=== PATIENT | female | born 1960 | race Two or more races ===

== ENCOUNTER → 2020-08-25 12:27 | Outpatient (BNVA) | payer OTHER, SELFPAY | PROVIDERS: PCP Internal Medicine; Referring Provider Internal Medicine; Visit Provider Dietitian, Registered | DX: Z76.89 Persons encountering health services in other specified circumstances (principal) ==

== ENCOUNTER → 2020-10-06 11:53 | Outpatient (BNVA) | payer OTHER, SELFPAY | PROVIDERS: PCP Internal Medicine; Visit Provider Dietitian, Registered ==

== ENCOUNTER 2022-02-14 08:43 | Outpatient (REF) | payer OTHER, SELFPAY ==
--- NOTE | ~2022-02-14 | XR_ITS ---
EXAMINATION: XR LUMBOSACRAL SPINE CLINICAL INFORMATION: Pain COMPARISON: Previous lumbar spine MRI from 2007 TECHNIQUE: Three views of the lumbosacral spine. FINDINGS: There is mild curvature of the lumbar spine to the left. Bone alignment is otherwise normal. There is degenerative disc disease at L4-L5. There is lower lumbar spine facet arthritis. There is sacralization of the left L5 transverse process. There is evidence of atherosclerotic disease. XR/XR lumbar spine 2-3V IMPRESSION: Degenerative changes of the lower lumbar spine.
[2022-02-14 09:17] LABS: MANUAL DIFF FLAG NO
[2022-02-14 09:38] LABS: Basophils Absolute Auto 0.1 X10*3/uL (0.0-0.2); Basophils Percent Auto 0.8 % (0-2); Eosinophils Absolute Auto 0.3 X10*3/uL (0.0-0.4); Eosinophils Percent Auto 2.3 % (0-4); Hematocrit 42.9 % (37.0-47.0); Imm Gran Abs Auto 0.04 X10*3/uL (0.00-0.03); Imm Gran Pct Auto 0.3 % (0.0-0.4); Lymphocytes Absolute Auto 3.5 X10*3/uL (1.2-4.9); Lymphocytes Percent Auto 29.1 % (20-40); Mean Corpuscular HGB Conc 32.6 g/dl (31.0-35.0); Mean Corpuscular Hemoglobin 31.4 pg (27.0-33.0); Mean Corpuscular Volume 96.2 fL (80.0-98.0); Mean Platelet Volume 11.4 fL (9.4-12.3); Monocytes Absolute Auto 0.7 X10*3/uL (0.1-1.2); Monocytes Percent Auto 6.1 % (2-11); Neutrophils Absolute Auto 7.3 x10*3/uL (2.0-8.3); Neutrophils Percent Auto 61.4 % (45-73); Platelet Count 255 X10*3/uL (160-400); Red Blood Count 4.46 X10*6/uL (4.20-5.50); White Blood Count 11.9 X10*3/uL (4.8-10.8)
[2022-02-14 10:28] LABS: Erythrocyte Sedimentation Rate 14 MM/HR (0-20)
[2022-02-14 10:47] LABS: Appearance Urine CLEAR; Color Urine YELLOW; Glucose Urine UA 250 MG/DL (NEG); Leukocyte Esterase Urine NEG (NEG); Nitrite Urine NEG (NEG); Specific Gravity - Urine 1.025 (1.005-1.025); Urine Blood NEG (NEG); Urine Ketones NEG (NEG); Urine Protein NEG (NEG-TRACE)
[2022-02-14 10:52] LABS: Vitamin D 25-OH Total 31.9 ng/mL (>30)
[2022-02-14 10:54] LABS: Alanine Aminotransferase 28 U/L (0-31); Albumin Level 4.3 g/dL (3.5-5.0); Alkaline Phosphatase 158 U/L (39-117); Anion Gap 16 (12-20); Aspartate Amino Transferase 18 U/L (5-31); Bilirubin Total 0.5 mg/dL (0.0-1.0); Blood Urea Nitrogen 13 mg/dL (9-16); C Reactive Protein 0.33 mg/dL (< or = 0.50); Calcium 9.7 mg/dL (8.4-10.2); Carbon Dioxide 25 mmol/L (22-29); Chloride 103 mmol/L (96-108); Cholesterol 165 mg/dL; Estimated Glomerular Filt Rate > 60; Glucose Fasting 186 mg/dL (60-99); HDL Cholesterol 37 mg/dL; LDL Cholesterol Calculated 94 mg/dl; Potassium 4.6 mmol/L (3.3-5.1); Sodium 139 mmol/L (135-145); Total Protein 7.2 g/dL (6.5-8.0); Triglycerides 172 mg/dL
[2022-02-14 11:58] LABS: Creatinine Urine 193.77 mg/dL; Microalbum/Creatinine Ratio Ur 5.6 ug/mg cr
[2022-02-16 05:06] LABS: C Peptide 1.63 ng/mL (0.80-3.85)
== END 2022-02-14 08:44 | disposition home or self-care (01) ==
LOC: HO.XRAY 08:43
PROVIDERS: PCP Internal Medicine; Visit Provider Internal Medicine
DX: E78.00 Pure hypercholesterolemia, unspecified (principal); I10 Essential (primary) hypertension; E55.9 Vitamin D deficiency, unspecified; M54.50 Low back pain, unspecified; M79.605 Pain in left leg; E11.9 Type 2 diabetes mellitus without complications
CPT/HCPCS: 36415; 72100; 80053; 80061; 81003; 82043; 82306; 84443; 84681; 85025; 85652; 86140

== ENCOUNTER 2022-08-22 12:42 | Outpatient (REF) | payer OTHER, SELFPAY ==
[2022-08-22 13:27] LABS: Appearance Urine Clear; Color Urine Yellow; Glucose Urine UA 100 mg/dL (Negative); Leukocyte Esterase Urine Trace (Negative); Nitrite Urine Negative (Negative); PH 5.5 (5.0-9.0); Specific Gravity - Urine 1.015 (1.005-1.025); UMIC TRIGGER UACC YES; Urine Blood Negative (Negative); Urine Ketones Negative (Negative); Urine Protein Negative (Neg-Trace)
[2022-08-22 13:31] LABS: Bacteria Urine None Seen (None Seen); Hyaline Casts Urine 0-2 /LPF (0-2); RBC Urine 0-2 /HPF (0-2); WBC Urine 0-5 /HPF (0-5)
== END 2022-08-22 12:43 | disposition home or self-care (01) ==
LOC: HO.LAB 12:42
PROVIDERS: PCP Internal Medicine; Visit Provider Internal Medicine
DX: R30.0 Dysuria (principal); R10.9 Unspecified abdominal pain
CPT/HCPCS: 81001

== ENCOUNTER → 2022-10-10 10:42 | Outpatient (BNVA) | payer OTHER, SELFPAY | PROVIDERS: PCP Internal Medicine; Visit Provider Nurse Practitioner Family | DX: M54.16 Radiculopathy, lumbar region (principal); M47.816 Spondylosis without myelopathy or radiculopathy, lumbar region; M51.36 Other intervertebral disc degeneration, lumbar region; M47.812 Spondylosis without myelopathy or radiculopathy, cervical region; M53.3 Sacrococcygeal disorders, not elsewhere classified; M62.838 Other muscle spasm | CPT/HCPCS: 99202 ==

== ENCOUNTER 2022-10-28 13:39 | Outpatient (REF) | payer OTHER, SELFPAY ==
--- NOTE | ~2022-10-28 | MR_ITS ---
EXAMINATION: MR LUMBAR SPINE WITHOUT CONTRAST CLINICAL INFORMATION: Lower back pain COMPARISON: MRI lumbar spine 07/21/2007 TECHNIQUE: MRI of the lumbar spine was obtained using routine sequences without contrast. FINDINGS: There is transitional lumbosacral anatomy with partial sacralization of L5 which demonstrates a broad transverse process which articulates with the sacrum. The last well-formed disc space corresponds to L5-S1 and there are hypoplastic ribs at T12.. Trace retrolisthesis of L4 on L5. No suspicious marrow signal or focal osseous lesion. Endplate marrow edema at L4-L5. The vertebral body heights are maintained. Multilevel degenerative disc desiccation and height loss, worst and progressed at L4-L5. The conus medullaris terminates at the level of L1. The distal spinal cord is normal in appearance. The cauda equina nerve roots appear normal. No significant abnormalities of the paraspinal musculature.. Limited evaluation of the intra-abdominal structures without significant abnormalities. The abdominal aorta is of normal contour and caliber. SPINAL LEVELS: T12-L1: Shallow disc bulge. No significant spinal canal or neural foraminal narrowing L1-L2: Shallow disc bulge with superimposed small central protrusion with slight caudal migration. No significant spinal canal or neural foraminal narrowing L2-L3: Shallow broad-based disc bulge mildly flattens the thecal sac. No significant spinal canal or neural foraminal narrowing L3-L4: Broad-based disc bulge, mild facet arthropathy with small bilateral joint effusions. Progressive subarticular zone narrowing and mild bilateral neural foraminal narrowing. No significant central spinal canal stenosis L4-L5: Trace retrolisthesis. Disc bulge and endplate spurring. Mild facet arthropathy with small right joint fluid. Ligamentum flavum thickening. Similar left greater than right subarticular zone narrowing with mass effect on the traversing L5 nerve roots. Stable mild bilateral neural foraminal narrowing. L5-S1: Mild facet arthropathy and endplate spurring. No significant spinal canal or neural foraminal narrowing MR/MR lumbar spine wo con IMPRESSION: 1. 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 2. Multilevel lumbar spondylosis as described above, most notable and slightly progressed at L3-L4 and L4-L5. No significant central spinal canal stenosis 3. At L4-L5, there is progressive degenerative disc disease and endplate edema with stable trace retrolisthesis and subarticular zone narrowing with mass effect on the traversing left greater than right L5 nerve roots and mild bilateral neural foraminal narrowing. 4. At L3-L4, there is progressive subarticular zone narrowing and mild bilateral neural foraminal narrowing.
== END 2022-10-28 13:40 | disposition home or self-care (01) ==
LOC: HO.MRI 13:39
PROVIDERS: Visit Provider Nurse Practitioner Family
DX: M54.16 Radiculopathy, lumbar region (principal); M47.816 Spondylosis without myelopathy or radiculopathy, lumbar region; M51.36 Other intervertebral disc degeneration, lumbar region; M62.838 Other muscle spasm
CPT/HCPCS: 72148

== ENCOUNTER 2022-11-15 10:49 | Outpatient (REF) | payer OTHER, SELFPAY ==
[2022-11-15 11:14] LABS: MANUAL DIFF FLAG NO
[2022-11-15 12:09] LABS: Basophils Absolute Auto 0.1 X10*3/uL (0.0-0.2); Basophils Percent Auto 0.8 % (0-2); Eosinophils Absolute Auto 0.3 X10*3/uL (0.0-0.4); Eosinophils Percent Auto 2.4 % (0-4); Hematocrit 42.4 % (37.0-47.0); Hemoglobin 14.2 g/dl (12.0-16.0); Imm Gran Abs Auto 0.05 X10*3/uL (0.00-0.03); Imm Gran Pct Auto 0.4 % (0.0-0.4); Lymphocytes Absolute Auto 3.2 X10*3/uL (1.2-4.9); Lymphocytes Percent Auto 27.6 % (20-40); Mean Corpuscular HGB Conc 33.5 g/dl (31.0-35.0); Mean Corpuscular Hemoglobin 31.6 pg (27.0-33.0); Mean Corpuscular Volume 94.4 fL (80.0-98.0); Monocytes Absolute Auto 0.8 X10*3/uL (0.1-1.2); Monocytes Percent Auto 6.8 % (2-11); Neutrophils Absolute Auto 7.3 x10*3/uL (2.0-8.3); Platelet Count 351 X10*3/uL (160-400); Red Blood Count 4.49 X10*6/uL (4.20-5.50); Red Cell Distribution Width 12.7 % (11.0-16.0); White Blood Count 11.7 X10*3/uL (4.8-10.8)
[2022-11-15 12:13] LABS: Appearance Urine Clear; Color Urine Yellow; Glucose Urine UA 500 mg/dL (Negative); Leukocyte Esterase Urine Negative (Negative); Nitrite Urine Negative (Negative); Specific Gravity - Urine 1.025 (1.005-1.025); Urine Blood Negative (Negative); Urine Ketones Trace mg/dL (Negative); Urine Protein Trace mg/dL (Neg-Trace)
[2022-11-15 12:44] LABS: Estimated Average Glucose 301 mg/dL; Hemoglobin A1c % 12.1 %
[2022-11-15 12:49] LABS: Creatinine Urine 184.27 mg/dL; Microalbum/Creatinine Ratio Ur 11.3 ug/mg cr
[2022-11-15 13:13] LABS: Alanine Aminotransferase 39 U/L (0-31); Albumin Level 4.3 g/dL (3.5-5.0); Alkaline Phosphatase 200 U/L (39-117); Anion Gap 18 (12-20); Aspartate Amino Transferase 29 U/L (5-31); Bilirubin Total 0.4 mg/dL (0.0-1.0); Blood Urea Nitrogen 15 mg/dL (9-16); Calcium 10.1 mg/dL (8.4-10.2); Carbon Dioxide 22 mmol/L (22-29); Chloride 104 mmol/L (96-108); Cholesterol 173 mg/dL; Estimated Glomerular Filt Rate > 60; Glucose Fasting 224 mg/dL (60-99); HDL Cholesterol 46 mg/dL; LDL Cholesterol Calculated 101 mg/dl; Potassium 4.9 mmol/L (3.3-5.1); Sodium 139 mmol/L (135-145); Total Protein 6.8 g/dL (6.5-8.0); Triglycerides 133 mg/dL
[2022-11-15 13:14] LABS: TSH reflex Free T4 2.67 uIU/mL (0.32-4.0); Vitamin D 25-OH Total 27.9 ng/mL (>30)
== END 2022-11-15 10:50 | disposition home or self-care (01) ==
LOC: HO.LAB 10:49
PROVIDERS: PCP Internal Medicine; Visit Provider Internal Medicine
DX: E78.00 Pure hypercholesterolemia, unspecified (principal); E55.9 Vitamin D deficiency, unspecified; E11.9 Type 2 diabetes mellitus without complications; I10 Essential (primary) hypertension; M53.3 Sacrococcygeal disorders, not elsewhere classified
CPT/HCPCS: 36415; 80053; 80061; 81003; 82043; 82306; 83036; 84443; 85025; 99212

== ENCOUNTER 2022-11-20 12:34 | Outpatient (AMB) | payer OTHER, SELFPAY ==
[2022-11-20 12:55] VITALS: BP 118/72; PULSE 88; TEMP 36.4; O2SAT 97; BMI 28.1
--- NOTE | 2022-11-20 12:55 | A.OFFPC_ITS ---
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: No Accompanied by: Self / Same As Patient Allergies iodine [IODINE] Allergy (Unknown, Verified 05/15/23 13:29) ANAPHYLAXIS IVP DYE Allergy (Severe, Uncoded 12/20/22 07:59) anaphylaxis Medication List - Last Reconciled 11/20/22 by Kana Roman MD acetaminophen ER 1,300 mg (2 x 650 mg) PO Q12H PRN atorvastatin 40 mg PO DAILY cholecalciferol (vitamin D3) 25 mcg PO DAILY famotidine 40 mg PO DAILY fluoxetine 20 mg PO DAILY gabapentin 300 mg PO TID 30 days glipizide 10 mg PO DAILY lisinopril 2.5 mg PO DAILY metformin 500 mg PO BID methocarbamol 750 mg PO Q8H PRN omeprazole 20 mg PO DAILY sitagliptin phosphate 50 mg PO DAILY 90 days temazepam (Restoril) 30 mg PO BEDTIME PRN Tobacco use date assessed: 11/20/22 HPI DM, hyperlipidemia, HTN HPI Details Patient comes in today for her follow up visit States that she feels okay She denies any headaches or dizziness Denies any chest pains, no SOB No nausea/vomiting, no abdominal pain No change in bowel habits noted Had her follow up labs done a few days ago - to discuss her results [facility] Medical History Benign essential hypertension GERD (gastroesophageal reflux disease) Insomnia Major depression, recurrent Overweight (BMI 25.0-29.9) Pure hypercholesterolemia Smoker Type 2 diabetes mellitus with hyperglycemia Vitamin D deficiency Surgical History Hx of foot surgery Hx of colonoscopy History of carpal tunnel release of both wrists Family History Father Diabetes Hypertension Mother Diabetes Hypertension Social History Housing: Apartment Alcohol intake: never Patient Tobacco Use Status: Current everyday Tobacco user Cigarettes Per Day: 3 e-Cigarette/Vaping Use: Never Used Second Hand Smoke Exposure: Yes service: No Current occupational status: disabled Cognitive needs: No Hearing needs: No Vision needs: Yes Questionnaire PHQ-9 Over the last 2 weeks, how often have you been bothered by any of the following problems? 1. Little interest or pleasure in doing things: several days 2. Feeling down, depressed, or hopeless: several days 3. Trouble falling or staying asleep, or sleeping too much: not at all 4. Feeling tired or having little energy: not at all 5. Poor appetite or overeating: not at all 6. Feeling bad about yourself - or that you are a failure or have let yourself or your family down: not at all 7. Trouble concentrating on things, such as reading the newspaper or watching television: several days 8. Moving or speaking so slowly that other people could have noticed. Or the opposite - being so fidgety or restless that you have been moving around a lot more than usual: not at all 9. Thoughts that you would be better off or of hurting yourself in some way: not at all Total score: 3 Depression Screening Interpretation: Negative 31222 - PHQ-9 Billing: Yes Source: Developed by Drs. Agustin Ramos, Claribel Cortez, Paul Mello and colleagues, with an educational alyssa from [employer]. Thrive Questionnaire Date Thrive assessed: 11/20/22 I am a: Patient What is your living situation today?: I have a steady place to live Within the past 12 months, did the food you bought not last and you didn't have the money to get more?: Never true Within the past 12 months, did you worry whether your food would run out before you got money to buy more?: Never true Do you have trouble paying for medicines?: No Do you have trouble getting transportation to medical appointments?: No Do you have trouble paying your heating and electricity bill?: No Do you have trouble taking care of your child, family member or friend?: No Do you have trouble with day-to-day activities such as bathing, preparing meals, shopping, managing finances, etc.?: No Are you currently unemployed and looking for a job?: No Are you interested in more education?: No Currently or been in a relationship where the following occur: no concerns reported AUDIT C Alcohol Use Questionnaire (AUDIT-C) 1. How often do you have a drink containing alcohol?: Never 3. How often do you have six or more drinks on one occasion?: Never Total Score: 0 Score Reviewed/Action Taken: Yes CALEB-7 AMB Questionnaire CALEB-7 Date CALEB - 7 assessed: 11/20/22 Feeling nervous, anxious, or on edge: 1 = Several days Not being able to stop or control worryin = Several days Worrying too much about different things: 0 = Not at all Trouble relaxin = Not at all Being so restless that it is hard to sit still: 0 = Not at all Becoming easily annoyed or irritable: 0 = Not at all Feeling afraid as if something awful might happen: 0 = Not at all Total CALEB-7 score (0-4 normal; 5-9 mild; 10-14 moderate; 15-21 severe): 2 Source: Developed by Drs. Agustin Ramos, Claribel Cortez, Paul Mello and colleagues, with an educational alyssa from [employer]. Review of Systems Const Denies chills, Reports fatigue, Denies fever(s) and Denies headache(s) ENT Denies dysphagia, Denies dizziness, Denies otalgia, Denies headache(s), Denies sinus pain and Denies sore throat Card Denies chest pain, Denies palpitations and Denies dyspnea Resp Denies cough and Denies dyspnea GI Denies abdominal pain, Denies constipation, Denies dysphagia, Denies heartburn, Denies diarrhea and Denies nausea Details: (+) left flank pain Denies difficulty voiding, Denies nocturia and Denies dysuria Musc Reports back pain (over the lower back and more recently over the left flank) Skin/Breast Denies rash Neuro Denies dizziness and Denies headache(s) Endo Reports fatigue and Denies palpitations Physical exam (Primary Care) Vital Signs: Last Vital Signs Temp 97.5 F 11/20/22 12:55 Pulse 88 11/20/22 12:55 BP 118/72 11/20/22 12:55 Pulse Ox 97 11/20/22 12:55 Oxygen Delivery Method Room Air 11/20/22 12:55 BMI result Body Mass Index 28.1 Tobacco/Smoking Status: Tobacco use Status Tobacco use date assessed 11/20/22 11/20/22 12:57 Patient Tobacco Use Status Current everyday Tobacco 11/20/22 12:57 e-Cigarette/Vaping Use Never Used 11/20/22 12:57 PHQ-9: PHQ-9 Score PHQ-9: Total score 3 11/20/22 13:52 Depression Screening Interpretation: Negative Thrive Assessment: Date of Thrive Assessment Date Thrive assessed 11/20/22 11/20/22 12:57 Currently or been in a relationship where the following occur: no concerns reported Const General: no acute distress and alert HENMT Ears: TM's normal bilaterally and EAC's normal Throat: Yes posterior oropharynx normal and Yes tonsils normal (no TP congestion) Neck Neck: Yes no lymphadenopathy and Yes supple Resp Auscultation: clear to auscultation bilaterally, no rales and no wheezes Cardio Rate: regular rate Rhythm: regular rhythm Heart sounds: no murmurs GI Palpation (GI): Soft to palpation and nontender Auscultation: normal bowel sounds General: Yes CVA tenderness (left) Back/Spine/Pelvis Back: CVA tenderness (left) Thoracic/Lumbar Spine: lumbar spinal tenderness Skin Rashes: no rashes Extrem General: Yes no clubbing, cyanosis or edema Results Reviewed Results Reviewed: Laboratory Tests 11/15/22 11/15/22 11/15/22 11:13 11:13 11:13 WBC 11.7 H Hgb 14.2 Hct 42.4 Plt Count 351 D Sodium 139 Potassium 4.9 Creatinine 0.83 Estimated GFR > 60 Fasting Glucose 224 H Hemoglobin A1c % 12.1 Calcium 10.1 AST 29 ALT 39 H Triglycerides 133 Cholesterol 173 LDL Cholesterol, Calc 101 HDL Cholesterol 46 25-OH Vitamin D Total 27.9 TSH 2.67 Ur Specific [place] Urine Protein Urine Glucose (UA) Urine Blood Microalb/Creat Ratio 11/15/22 11/15/22 11:36 11:36 WBC Hgb Hct Plt Count Sodium Potassium Creatinine Estimated GFR Fasting Glucose Hemoglobin A1c % Calcium AST ALT Triglycerides Cholesterol LDL Cholesterol, Calc HDL Cholesterol 25-OH Vitamin D Total TSH Ur Specific [place] 1.025 Urine Protein Trace Urine Glucose (UA) 500 H Urine Blood Negative Microalb/Creat Ratio 11.3 Assessment and Plan Assessment & Plan (1) Type 2 diabetes mellitus with hyperglycemia: Code(s): E11.65 - Type 2 diabetes mellitus with hyperglycemia Qualifiers: Diabetes mellitus moth exterminator insulin use: without moth exterminator use Qualified Code(s): E11.65 - Type 2 diabetes mellitus with hyperglycemia Plan: Is still poorly-controlled Her HgbA1c appears to have gotten a lot worse since her last visit as it has gone up to 12.1% on her recent labs done a few days ago (in-office HgbA1c was at 8.7% a few months ago) - goal is <7.0% Reinforced diabetic diet Will increase her Metformin to 1000 mg BID Will STOP Januvia 50 mg QD and start her on Trulicity 0.75 mg SQ once a week Continue Glipizide 10 mg QD for now Was previously referred to endocrinology for further evaluation and management TWICE but she states that she has never been contacted to scheduled an appointment; advised that she had an appointment back in February 2022 with a physician allergist immunologist and in March 2022 with endocrinology that she did not keep Will refer patient AGAIN to endocrinology for the 3rd time for further evaluation and management of her diabetes (2) Pure hypercholesterolemia: Code(s): E78.00 - Pure hypercholesterolemia, unspecified Plan: Results of her labs done a few days ago reviewed and discussed with patient Reinforced low cholesterol deit Continue Atorvastatin 40 mg QD Will recheck her fasting lipids and labs in 3 months for follow-up (3) Benign essential hypertension: Code(s): I10 - Essential (primary) hypertension Plan: Reinforced low sodium diet - goal is systolic BP of 120 mm or less Continue Lisinopril 2.5 mg QD (4) GERD (gastroesophageal reflux disease): Code(s): K21.9 - Gastro-esophageal reflux disease without esophagitis Qualifiers: Esophagitis presence: without esophagitis Qualified Code(s): K21.9 - Gastro-esophageal reflux disease without esophagitis Plan: Dietary restrictions reinforced Continue Omeprazole 20 mg QD and Famotidine 40 mg QD PRN (5) Low back pain radiating to left lower extremity: Code(s): M54.50 - Low back pain, unspecified; M79.605 - Pain in left leg Plan: Continue Gabapentin 300 mg TID Reinforced activity and weight-lifting restrictions Lumbar spine x-rays done a few months ago revealed (+) degenerative changes in the lumbar spine Follow up with pain management as scheduled (6) Vitamin D deficiency: Code(s): E55.9 - Vitamin D deficiency, unspecified Plan: Will increase her Vitamin D to 2000 units QD (7) Insomnia: Code(s): G47.00 - Insomnia, unspecified Qualifiers: Insomnia type: unspecified Qualified Code(s): G47.00 - Insomnia, unspecified Plan: Sleep hygiene reinforced Continue Temazepam 30 mg Q HS PRN (8) Major depression, recurrent: Code(s): F33.9 - Major depressive disorder, recurrent, unspecified Qualifiers: Active/Remission status: currently active Major depression episode severity: unspecified Qualified Code(s): F33.9 - Major depressive disorder, recurrent, unspecified Plan: Continue Fluoxetine 20 mg QD Follow up with psychiatry as scheduled (9) Smoker: Code(s): F17.200 - Nicotine dependence, unspecified, uncomplicated Plan: Counseled again on smoking cessation Will start on Bupropion XL 150 mg QD to help her quit smoking (10) Overweight (BMI 25.0-29.9): Code(s): E66.3 - Overweight Plan: Reinforced diet/exercise as tolerated/lose weight Plan Follow up in 3 months Orders: Orders Comprehensive [place]. Panel Fast 3 Months E78.00 - Pure hypercholesterolemia, unspecified Microalbumin, Random (w Creat) 3 Months E11.9 - Type 2 diabetes mellitus without complications XR chest 2V 17/23 R05.9 - Cough, unspecified, R07.89 - Other chest pain Complete Blood Count Auto Diff 3 Months I10 - Essential (primary) hypertension Lipid Panel 3 Months E78.00 - Pure hypercholesterolemia, unspecified TSH reflex Free T4 3 Months E78.00 - Pure hypercholesterolemia, unspecified UA CC w/rflx Micro + Cult 3 Months R30.0 - Dysuria Vitamin D 25-OH Total 3 Months E55.9 - Vitamin D deficiency, unspecified Hemoglobin A1c 3 Months E11.9 - Type 2 diabetes mellitus without complications Referrals Endocrinology Referral E11.65 - Type 2 diabetes mellitus with hyperglycemia Medications: New dulaglutide (Trulicity) 0.75 mg (0.5 mL) subcut QWEEK 2 mL 3RF 4 weeks E11.65 - Type 2 diabetes mellitus with hyperglycemia bupropion HCl 150 mg PO QAM 30 tabs 2RF 30 days cholecalciferol (vitamin D3) 50 mcg PO DAILY 90 caps 3RF 90 days E55.9 - Vitamin D deficiency, unspecified Changed From metformin 500 mg PO BID 60 tabs 3RF To metformin 1,000 mg PO BID 60 tabs 3RF 30 days Discontinued sitagliptin phosphate Discontinued Reason: Doctor's Order 50 mg PO DAILY 90 days 90 tabs 1RF Coding Level of Care Code Est Pt Level 4 (01017) Diagnoses Type 2 diabetes mellitus with hyperglycemia, without long-term current use of insulin E11.65 Diabetes mellitus moth exterminator insulin use: without long-term use Pure hypercholesterolemia E78.00 Benign essential hypertension I10 Gastroesophageal reflux disease without esophagitis K21.9 Esophagitis presence: without esophagitis Low back pain radiating to left lower extremity M54.50; M79.605 Vitamin D deficiency E55.9 Insomnia, unspecified type G47.00 Insomnia type: unspecified Episode of recurrent major depressive disorder, unspecified depression episode severity F33.9 Active/Remission status: currently active Major depression episode severity: unspecified Smoker F17.200 Overweight (BMI 25.0-29.9) E66.3
== END 2022-11-20 14:29 | disposition home or self-care (01) ==
LOC: HO.HMGH 12:34
PROVIDERS: PCP Internal Medicine; Visit Provider Internal Medicine
DX: E11.65 Type 2 diabetes mellitus with hyperglycemia (principal); F33.9 Major depressive disorder, recurrent, unspecified; E78.00 Pure hypercholesterolemia, unspecified; I10 Essential (primary) hypertension; K21.9 Gastro-esophageal reflux disease without esophagitis; M54.50 Low back pain, unspecified; M79.605 Pain in left leg; E55.9 Vitamin D deficiency, unspecified; G47.00 Insomnia, unspecified; F17.210 Nicotine dependence, cigarettes, uncomplicated; E66.3 Overweight
CPT/HCPCS: 99214

== ENCOUNTER 2022-11-22 10:59 | Outpatient (REF) | payer OTHER, SELFPAY ==
--- NOTE | ~2022-11-22 | XR_ITS ---
EXAMINATION: XR CHEST CLINICAL INFORMATION: Reason for Exam R05.9 - Cough, unspecified COMPARISON: Chest radiograph 10/13/2019 TECHNIQUE: 2 views of the chest FINDINGS: Again seen is a calcified right lung base granuloma measuring 8 mm. Stable biapical pleural-parenchymal scarring. Lungs appear otherwise clear. No pneumothorax or pleural effusion. Normal cardiomediastinal silhouette. XR/XR chest 2V IMPRESSION: 1. No acute pulmonary disease. 2. Again seen is a calcified right lung base granuloma measuring 8 mm.
== END 2022-11-22 11:00 | disposition home or self-care (01) ==
LOC: HO.XRAY 10:59
PROVIDERS: PCP Internal Medicine; Visit Provider Internal Medicine
DX: R07.89 Other chest pain (principal); R05.9 Cough, unspecified
CPT/HCPCS: 71046

== ENCOUNTER 2022-11-25 09:00 | Outpatient (RCR) | payer OTHER, SELFPAY ==
--- NOTE | 2022-11-06 13:09 | MHC.PT.EP ---
[facility] [place] Office [place] Office [place] Office [address] Ciara Caba [address] [phone] F: [phone] F: [phone] F: [phone] F: [phone] Physical Therapy Plan of Care Date of Evaluation: Date of Surgery: Diagnosis: SPONDYLOSIS CERVICAL AND LUMBAR REGIONS Assessment: 61 YO FEMALE REF TO PT FOR CERVICAL AND LUMBAR SPONDYLOSIS PROGRESSIVELY x 20 YRS- SHE WAS TREATED W PT AND INJECTIONS IN [place]. SHE RESIDES W HER GRANDSON IN A 4TH FLOOR APT, STAIRS ONLY. Pt HAS DECR POSTURAL AWARENESS, CERVICAL AND LUMBAR ROM LIMITATIONS, DECR HIP FLEXIBILITY, AND (+) SOFT TISSUE IRRIT IN RUBI CERV AND LUMBAR PS MM- SHE DENIES RADICUALR SXS AT THIS TIME. FUNCTIONALLY, Pt STATES SHE HAS DECR JESIKA TO STANDING, INCR AMBULATION, STAIR MGMT, AND HIGHER LEVEL ADLs. Pt WOULD BENEFIT FROM A TRIAL OF PT TO ADDRESS THE ABOVE FINDINGS, PAIN MANAGEMENT, AND DEV OF A HEP. Frequency and Duration: The patient will be seen 2 x WK x 5 WKS Short Term Goals: *Pt DEMON IMPROVED POSTURAL AWARENESS *DECR LB AND NECK PAIN TO 3-4/10 *IMPROVE HIP AND UPPER BACK STRENGTH *REDUCE UT TISSUE TENSION INCR ACTIVE SCAP RETRACTION Histology Tech Goals: *INCR FLEXIB IN PSOAS/ CALF MM TO IMPROVE EFFICIENCY OF GAIT ON LEVEL AND STAIRS *Pt INDEP W HEP AND SELF-CORRECT POSTURE *Pt IMPROVE FUNCTIONAL MOBILITY JESIKA -> PERFORM INCR ADLs Treatment Plan: Modalities to reduce pain, spasms and effusion. Manual therapy to restore motion and function. Therapeutic exercise to improve strength and flexibility. Neuromuscular re-education for posture and balance. Therapeutic activities to return to functional activities of daily living. Electronically signed by: SCOOTER RAYMONDPT Please sign and return to therapist. Thank you for your referral.
--- NOTE | 2023-01-21 14:24 | MHC.PT.DC ---
[place] Office [place] Office [place] Office [address] Ciara Caba [address] [facility] [phone] F: [phone] F: [phone] F: [phone] F: [phone] Physical Therapy Discharge Report Diagnosis: SPONDYLOSIS CERVICAL AND LUMBAR REGIONS Date of Surgery: Date of Evaluation: 11/06/22 Date of Discharge: 01/21/23 Treatments to Date: 6 Cancellations to Date: 0 No Shows to Date: 1 Discharge Status: Improved Function Independent with HEP Patient Elected to Stop Discharge Summary: The pt benefitted from PT to address postural and strength deficits, dev a hep, and pain management strategies. She has a HEP and at her last attended PT appt, she denied questions. A reassessment was not performed due a no-show for her last scheduled PT appt. Electronically signed by: Angle Zhou,pt Please sign and return to therapist. Thank you for your referral.
== END 2023-01-21 14:24 | disposition home or self-care (01) ==
LOC: HO.PT 09:00
PROVIDERS: PCP Internal Medicine; Visit Provider Nurse Practitioner Family
DX: M47.812 Spondylosis without myelopathy or radiculopathy, cervical region (principal); M47.816 Spondylosis without myelopathy or radiculopathy, lumbar region; M62.838 Other muscle spasm; M54.16 Radiculopathy, lumbar region; M53.3 Sacrococcygeal disorders, not elsewhere classified; M51.36 Other intervertebral disc degeneration, lumbar region
CPT/HCPCS: 97110; 97140; 97162; 97530

== ENCOUNTER → 2022-12-20 07:55 | Outpatient (BNVA) | payer OTHER, SELFPAY | PROVIDERS: PCP Internal Medicine; Visit Provider Internal Medicine Endocrinology, Diabetes & Metabolism | DX: E11.65 Type 2 diabetes mellitus with hyperglycemia (principal); E78.5 Hyperlipidemia, unspecified; Z83.3 Family history of diabetes mellitus | CPT/HCPCS: 82947; 99202 ==

== ENCOUNTER → 2023-02-14 09:01 | Outpatient (BNVA) | payer OTHER, SELFPAY | PROVIDERS: PCP Internal Medicine; Visit Provider Registered Nurse Diabetes Educator | DX: E11.8 Type 2 diabetes mellitus with unspecified complications (principal) | CPT/HCPCS: 99211 ==

== ENCOUNTER 2023-02-18 06:12 | Outpatient (REF) | payer OTHER, SELFPAY ==
--- NOTE | ~2023-02-18 | FL_ITS ---
EXAMINATION: XR FLUOROSCOPY WITH IMAGES CLINICAL INFORMATION: Spondylosis without myelopathy or radiculopathy, lumbar region. COMPARISON: None available. TECHNIQUE: Fluoroscopy Supervised By: Dr. Gwyn Bender. Fluoroscopy Time: 0.5 minutes. Cumulative Dose: 5.17 mGy. DAP: 1.40 Gycm2. Images: 6. FINDINGS: Images demonstrate needle placement and contrast injection adjacent to the bilateral lateral L3-L4 and L5 vertebrae FL/FL guidance in treatment room IMPRESSION: Fluoroscopy guidance for pain management procedure
== END 2023-02-18 06:13 | disposition home or self-care (01) ==
LOC: CF 06:12
PROVIDERS: Visit Provider Anesthesiology
DX: M47.816 Spondylosis without myelopathy or radiculopathy, lumbar region (principal); M54.16 Radiculopathy, lumbar region; M53.3 Sacrococcygeal disorders, not elsewhere classified; M62.838 Other muscle spasm; M51.36 Other intervertebral disc degeneration, lumbar region; E11.65 Type 2 diabetes mellitus with hyperglycemia
CPT/HCPCS: 64493; 64494; J3301

== ENCOUNTER → 2023-02-25 15:17 | Outpatient (BNVA) | payer OTHER, SELFPAY | PROVIDERS: PCP Internal Medicine; Visit Provider Nurse Practitioner Family | DX: M53.3 Sacrococcygeal disorders, not elsewhere classified (principal); M47.816 Spondylosis without myelopathy or radiculopathy, lumbar region; M62.838 Other muscle spasm; M51.36 Other intervertebral disc degeneration, lumbar region | CPT/HCPCS: 99212 ==

== ENCOUNTER → 2023-03-05 09:32 | Outpatient (BNVA) | payer OTHER, SELFPAY | PROVIDERS: PCP Internal Medicine; Visit Provider Dietitian, Registered | DX: E11.65 Type 2 diabetes mellitus with hyperglycemia (principal); Z71.3 Dietary counseling and surveillance | CPT/HCPCS: 97802 ==

== ENCOUNTER 2023-04-15 09:12 | Outpatient (AMB) | payer OTHER, SELFPAY ==
--- NOTE | 2023-04-15 09:35 | A.OFFVIS_ITS ---
Intake Intake Visit Reasons: Dm2 Wireless Communications Engineer Required: Yes Wireless Communications Engineer Language: Gis Scientist Name: [place] [facility] [place]panied by: Son Allergies iodine [IODINE] Allergy (Unknown, Verified 02/25/23 15:26) ANAPHYLAXIS IVP DYE Allergy (Severe, Uncoded 12/20/22 07:59) anaphylaxis HPI Comprehensive Diabetes Asmnt Most Recent Diabetes Results: No Data to Display PFSH Medical History Benign essential hypertension GERD (gastroesophageal reflux disease) Insomnia Major depression, recurrent Overweight (BMI 25.0-29.9) Pure hypercholesterolemia Smoker Type 2 diabetes mellitus with hyperglycemia Vitamin D deficiency Surgical History History of carpal tunnel release of both wrists Hx of colonoscopy Hx of foot surgery Family History Father Diabetes Hypertension Mother Diabetes Hypertension Social History Housing: Apartment Alcohol intake: never Patient Tobacco Use Status: Current everyday Tobacco user Cigarettes Per Day: 3 e-Cigarette/Vaping Use: Never Used Second Hand Smoke Exposure: Yes service: No Current occupational status: disabled Cognitive needs: No Hearing needs: No Vision needs: Yes Assessment & Plan Assessment & Plan (1) Type 2 diabetes mellitus with unspecified complications: Code(s): E11.8 - Type 2 diabetes mellitus with unspecified complications Plan: Learning objectives: The patient was provided with verbal and written education on the following topics as outlined below. Assess patient education level/literacy/barriers Patient questions/concerns The patient met all learning objectives and was able to verbalize understanding and provide teach back of education topics discussed . The patient was provided with the opportunity to ask questions and all questions were answered. Patient at visit with son. Patient still has not increased glucose testing or had A1c drawn. Reports she has been more compliant with taking medications however medications in the afternoon continue to be for gotten several times a week. Patient missed last appointment with Dr. Day due to illness. Patient is overdue for A1c. Order for A1c in patient's chart, recommended to patient to have last fasting labs drawn prior to appointment with dietitian on 04/16/2023 Also instructed patient to reschedule appointment with Dr. Day. Ask patient to clarify which dose of Trulicity she is using Topics covered in today?s session included: Medications (If applicable) ? Name of medication? Dosing/administration instructions? Mechanism of action? Potential side effects? Potential adverse reaction and appropriate treatment? Review onset, peak, duration Assess for concerns re: insurance coverage, cost, barriers to compliance Insulin/Injectables (If applicable) ? Storage/care of insulin? Injection sites? Site rotation? Onset, peak, duration ? Drawing up insulin? Injecting insulin/other injectables? Sharps disposal Continuous blood glucose monitoring (if applicable) Hypoglycemia and Hyperglycemia ? Signs and symptoms? Causes? Treatment? Preventing hypoglycemia? When to seek medical attention ?Blood glucose targets and how you feel when your blood glucose is in and out of your target ranges. ?Monitoring and knowing your A1C. ?What can make blood glucose go up and down and preventing high and low blood glucose. ?Review of blood sugar targets in expected goal range and outside of expected goal range. ?Problem solving and preventing hyper/hypoglycemia. ?Sick day management of diabetes. ?Using blood sugar results in decision making process in managing diabetes. ?Patient was receptive to information provided and participated in the discussion. Asked?appropriate questions and demonstrated good understanding of the topics discussed.? ? Educational Materials: The patient was provided with the following written educational materials: Target Goal, how to treat low blood glucose handout Smart Goal Assessment:? Patient will test glucose 3 times a day Pt met goal less than 25% New Smart Goal: Patient will continue goal of testing 3 times a day Patient Response to instructions: Comprehension of Instructions: Fair Readiness to make changes:? Pre contemplation How confident they feel about making changes: Poor Patient Instructions: Have A1c drawn Follow-up with animal care provider in 1 month Coding Level of Care Code Est Pt Level 1 (26764) Diagnoses Type 2 diabetes mellitus with unspecified complications E11.8
== END 2023-04-15 09:44 | disposition home or self-care (01) ==
PROVIDERS: PCP Internal Medicine; Visit Provider Registered Nurse Diabetes Educator
DX: E11.8 Type 2 diabetes mellitus with unspecified complications (principal)

== ENCOUNTER → 2023-04-15 09:12 | Outpatient (BNVA) | payer OTHER, SELFPAY | PROVIDERS: PCP Internal Medicine; Visit Provider Registered Nurse Diabetes Educator | DX: E11.65 Type 2 diabetes mellitus with hyperglycemia (principal); Z83.3 Family history of diabetes mellitus; Z79.85 Long-term (current) use of injectable non-insulin antidiabetic drugs | CPT/HCPCS: 99211 ==

== ENCOUNTER 2023-04-16 10:57 | Outpatient (AMB) | payer OTHER, SELFPAY ==
[2023-04-16 11:05] VITALS: BMI 27.3
--- NOTE | 2023-04-16 11:05 | MHC.AMNUTRGE ---
Intake VS Expanded 04/16/23 11:05 Height 4 ft 11 in Weight 135 lb 2.294 oz BMI 27.3 Intake Visit Reasons: T2DM Allergies iodine [IODINE] Allergy (Unknown, Verified 02/25/23 15:26) ANAPHYLAXIS IVP DYE Allergy (Severe, Uncoded 12/20/22 07:59) anaphylaxis HPI Nutrition Presentation Details Pt presents for MNT for T2DM Pt reports appetite is good, reports feeling well. Denies having questions or concerns. Today we will review meal plan concepts for DM PYP-Pahxnmb-Yy.Jeor Equation Height 4 ft 11 in Weight 135 lb Resting Metabolic Rate 1082.32 Calculated Activity Level Sedentary Calories Needed to Maintain Weight 1298.78 Diagnosis Nutrition problem #1 food nutri know defi As related to (etiology) #1 diagnosis (T2DM) As evidenced by (sign/symptom) #1 knowledge deficit of diet Most Recent Diabetes Results: No Data to Display [facility] Medical History Benign essential hypertension GERD (gastroesophageal reflux disease) Insomnia Major depression, recurrent Overweight (BMI 25.0-29.9) Pure hypercholesterolemia Smoker Type 2 diabetes mellitus with hyperglycemia Vitamin D deficiency Surgical History History of carpal tunnel release of both wrists Hx of colonoscopy Hx of foot surgery Family History Father Diabetes Hypertension Mother Diabetes Hypertension Social History Housing: Apartment Alcohol intake: never Patient Tobacco Use Status: Current everyday Tobacco user Cigarettes Per Day: 3 e-Cigarette/Vaping Use: Never Used Second Hand Smoke Exposure: Yes service: No Current occupational status: disabled Cognitive needs: No Hearing needs: No Vision needs: Yes Assessment & Plan Assessment & Plan (1) Poorly controlled diabetes mellitus: Code(s): E11.65 - Type 2 diabetes mellitus with hyperglycemia Plan: used wt : 61 kg Est kcal needs as per MSJ: 9679-5607 (40% carb, 30% protein/fat) Est fluid needs as per 25-30 ml/d: 1534 Est prot per day as per 1 g/kg bw: 61 Recommend fiber intake : 8-10 g per day and gradually increase to 25-28 g per day for women and 35-38 g for men or as tolerated Recommend sodium intake per day : less than 1500 mg less than 2000 mg Educated patient on: ( R = reviewed V = verbalizes understanding N/R = needs review N/A = not applicable Food sources of carbohydrate, adequate serving sizes and its role in various health conditions: R Differences between complex carbohydrates a simple carbohydrates, role of fiber in diet: NR Differences between types of fats and role in diet (mono on saturated fat fatty acids, saturated fatty acids, trans fats): R Food sources of sodium in salt and healthy modifications for heart health in kidney health: NR Vitamins and minerals: NR Healthy plate method concept: R Physical activity: Benefits a precaution: R Hypoglycemia protocol (rule of 15): NR Dietary prevention of Hyperglycemia: NR Patient Instructions: Follow healthy plate method at dinner include 1-2 servings of protein at lunch and a t dinner Choose 1/2 sand at bedtime instead of cereal with milk to reduce on total carbohydrate Coding Level of Care Code Nutr Indiv Subseq (37177) Diagnoses Poorly controlled diabetes mellitus E11.65 Time Spent (min) 30
[2023-04-21 13:33] VITALS: BMI 27.3
== END 2023-04-16 11:30 | disposition home or self-care (01) ==
PROVIDERS: PCP Internal Medicine; Visit Provider Dietitian, Registered
DX: E11.65 Type 2 diabetes mellitus with hyperglycemia (principal)

== ENCOUNTER → 2023-04-16 10:57 | Outpatient (BNVA) | payer OTHER, SELFPAY | PROVIDERS: PCP Internal Medicine; Visit Provider Dietitian, Registered | DX: E11.65 Type 2 diabetes mellitus with hyperglycemia (principal) | CPT/HCPCS: 97803 ==

== ENCOUNTER 2023-05-15 13:08 | Outpatient (AMB) | payer OTHER, SELFPAY ==
[2023-05-15 13:23] VITALS: BP 122/68; PULSE 71; BMI 27.6
--- NOTE | 2023-05-15 13:23 | A.OFFVIS_ITS ---
Intake Vital Signs 05/15/23 13:23 Height 4 ft 11 in Weight 136 lb 14.513 oz BMI 27.6 BP 122/68 Blood Pressure Location Lt brachial Position Sitting Pulse 71 Pulse Source Pulse Oximeter Intake Visit Reasons: DM Intake Note: Patient presents today to follow up on Type Diabetes Mellitus. Patient receives DME supplies through: Pharmacy Last Diabetic Eye exam: 2020 Last Podiatry Visit: None Random Glucose:196 mg/dl HgA1C: 8.2% Information Technology Advisor Required: Yes Information Technology Advisor Language: English Information Interpreted: non-clinical & clinical Accompanied by: Self / Same As Patient Allergies iodine [IODINE] Allergy (Unknown, Verified 05/15/23 13:29) ANAPHYLAXIS IVP DYE Allergy (Severe, Uncoded 12/20/22 07:59) anaphylaxis Medication List - Last Reconciled 05/15/23 by Agustin Day MD acetaminophen ER (Arthritis Pain Relief (acetaminophen) ER) 1,300 mg (2 x 650 mg) PO Q12H PRN 30 days atorvastatin 40 mg PO DAILY blood sugar diagnostic (FreeStyle Lite Strips) As directed test 4 times a day blood-glucose meter (FreeStyle Lite Meter kit) As directed test 4 times a day bupropion HCl 150 mg PO QAM 30 days buspirone 5 mg PO BID cholecalciferol (vitamin D3) 50 mcg PO DAILY 90 days dulaglutide (Trulicity) 1.5 mg (0.5 mL) subcut QWEEK famotidine 40 mg PO DAILY fluoxetine 20 mg PO DAILY gabapentin 300 mg PO TID 30 days glipizide 10 mg PO DAILY lancets (FreeStyle Lancets) As directed test 4 times a day lisinopril 2.5 mg PO DAILY metformin 1,000 mg PO BID 90 days methocarbamol 750 mg PO Q8H PRN omeprazole 20 mg PO DAILY quetiapine mg PO temazepam (Restoril) 30 mg PO BEDTIME PRN HPI HPI Comments History of Present Illness Details 62 YO F who is seen in consultation for T2DM at the request of PCP. Initially diagnosed with T2DM in 10 yrs . Never seen endo Was initially started on treatment with Januvia .stopped Current regimen trulicity 1.5 mg Qwkly Glipizide 10 mg QD Metformin 1000mg BID. Unfortunately, patient did not bring log book or glucometer to follow-up visit No hypoglycemia Family history of T2DM in mother, father . Has eyes checked yearly, last eye exam 1 1/2 yr needs to make appt , denies retinopathy. Denies neuropathy,Not sees podiatry. Denies nephropathy, on ANA/ARB. Has HLD, on statin. . Denies CAD. Not Had diabetes education. [facility], [facility] Medical History Benign essential hypertension GERD (gastroesophageal reflux disease) Insomnia Major depression, recurrent Overweight (BMI 25.0-29.9) Pure hypercholesterolemia Smoker Type 2 diabetes mellitus with hyperglycemia Vitamin D deficiency Surgical History Hx of foot surgery Hx of colonoscopy History of carpal tunnel release of both wrists Family History Father Diabetes Hypertension Mother Diabetes Hypertension Social History Housing: Apartment Alcohol intake: never Patient Tobacco Use Status: Current everyday Tobacco user Cigarettes Per Day: 3 e-Cigarette/Vaping Use: Never Used Second Hand Smoke Exposure: Yes service: No Current occupational status: disabled Cognitive needs: No Hearing needs: No Vision needs: Yes Physical Exam Vital Signs: Last Vital Signs Pulse 71 05/15/23 13:23 BP 122/68 05/15/23 13:23 BMI result Body Mass Index 27.6 Absence of Cushingoid features. Absence of acromegalic features. Neck exam reveals nl size thyroid about 15 gms. No thyroid nodules palpable. No carotid bruits present. Lungs CTA. Heart S1 S2, Reg R/R. No M/R/ G. Skin exam reveals absence of vitiligo or acanthosis nigricans. Abdominal exam reveals Soft NT/ND with NA BS. No organomegaly present. Neck Other: . Extrem Other: Visual exam of foot performed. No ulcerations or open lesions. No onchomycosis, no callouses.Pulses 2 + distally Sensation intact to monofilament exam. Vibratory sensation sensed is intact with 128 Hz tuning fork Results AMB Hemoglobin A1c AMB Hemoglobin A1c 8.2 % Last Edit by Maria R Jaimes on 05/15/23 13:43 Results Reviewed Results Reviewed: 05/15/23 13:33 Glucose, Whole Blood Routine Laboratory Last Values Glucose (Clinic) 196 mg/dL (60-115) H 05/15/23 13:33 Hgb A1c (Clinic) 8.2 % (4.0-6.0) H 05/15/23 13:36 Assessment & Plan Assessment & Plan (1) Type 2 diabetes mellitus with hyperglycemia: Code(s): E11.65 - Type 2 diabetes mellitus with hyperglycemia Qualifiers: Diabetes mellitus terminal press operator insulin use: without terminal press operator use Qualified Code(s): E11.65 - Type 2 diabetes mellitus with hyperglycemia Plan: This 62-year-old female with history of type 2 diabetes being treated metformin, Trulicity and glipizide with poor glycemic control and no known microvascular or macrovascular complications. Plan is to have the patient check her point cares pre and post meals. She was advised to bring the glucometer with her to follow-up appointments. We will increase the Trulicity to 3 mg Q weekly. We the help of hazard waste handler, explained the relationship poor glycemic control to development and progression complication. . Patient would be a good candidate for sensor like a Dexcom or Jessica in the future. I did make a referral to Ophthalmology Orders: Orders AMB Hemoglobin A1c Today E11.65 - Type 2 diabetes mellitus with hyperglycemia Referrals Ophthalmology Referral E11.65 - Type 2 diabetes mellitus with hyperglycemia Medications: New dulaglutide (Trulicity) 3 mg (0.5 mL) subcut QWEEK 2 mL 5RF Discontinued dulaglutide (Trulicity) Discontinued Reason: Doctor's Order 1.5 mg (0.5 mL) subcut QWEEK 2 mL 5RF Coding Level of Care Code Est Pt Level 4 (02934) Diagnoses Type 2 diabetes mellitus with hyperglycemia, without long-term current use of insulin E11.65 Diabetes mellitus senior care insulin use: without terminal press operator use
[2023-05-15 13:37] LABS: Glucose, Whole Blood 196 mg/dL (60-115)
== END 2023-05-15 14:12 | disposition home or self-care (01) ==
PROVIDERS: PCP Internal Medicine; Visit Provider Internal Medicine Endocrinology, Diabetes & Metabolism
DX: E11.65 Type 2 diabetes mellitus with hyperglycemia (principal)
CPT/HCPCS: 99214

== ENCOUNTER → 2023-05-15 13:08 | Outpatient (BNVA) | payer OTHER, SELFPAY | PROVIDERS: PCP Internal Medicine; Visit Provider Internal Medicine Endocrinology, Diabetes & Metabolism | DX: E11.65 Type 2 diabetes mellitus with hyperglycemia (principal) | CPT/HCPCS: 82947; 83036; 99212 ==

== ENCOUNTER 2023-11-18 16:59 | Outpatient (AMB) | payer OTHER, SELFPAY ==
[2023-11-18 17:01] VITALS: BP 120/80; PULSE 88; O2SAT 98; BMI 25.5
--- NOTE | 2023-11-18 17:01 | MHC.PC.OV ---
Vital Signs 11/18/23 17:01 Height 4 ft 11 in Weight 126 lb 8 oz BMI 25.5 BP 120/80 Blood Pressure Location Lt brachial Position Sitting Pulse 88 Pulse Source Pulse Oximeter Pulse Oximetry (%) 98 Oxygen Delivery Method Room Air Intake Visit Reasons: f/u Meat Passer Required: No Accompanied by: Self / Same As Patient Allergies iodine [IODINE] Allergy (Unknown, Verified 11/25/23 14:27) ANAPHYLAXIS IVP DYE Allergy (Severe, Uncoded 11/25/23 14:27) anaphylaxis Medication List - Last Reconciled 11/25/23 by Kana Roman MD acetaminophen ER (Arthritis Pain Relief (acetaminophen) ER) 1,300 mg (2 x 650 mg) PO Q12H PRN 30 days atorvastatin 40 mg PO DAILY blood sugar diagnostic (FreeStyle Lite Strips) As directed test 4 times a day blood-glucose meter (FreeStyle Lite Meter kit) As directed test 4 times a day bupropion HCl 150 mg PO QAM 30 days buspirone 5 mg PO BID cholecalciferol (vitamin D3) 50 mcg PO DAILY 90 days dulaglutide (Trulicity) 3 mg (0.5 mL) subcut QWEEK famotidine 40 mg PO DAILY fluoxetine 20 mg PO DAILY gabapentin 300 mg PO TID 30 days glipizide 10 mg PO DAILY ketoconazole 2% 1 appl topical 2XW lancets (FreeStyle Lancets) As directed test 4 times a day lisinopril 2.5 mg PO DAILY metformin 1,000 mg PO BID 90 days methocarbamol 750 mg PO Q8H PRN omeprazole 20 mg PO DAILY quetiapine mg PO temazepam (Restoril) 30 mg PO BEDTIME PRN Tobacco use date assessed: 11/18/23 Dental Screening Dental Screen Date: 11/18/23 Did you have a dental visit in the last 12 months?: No Did you have a dental problem in the last 6 months where you did not have access to dental care?: No Was dental information given to patient?: No HPI f/u HPI Details Patient comes in today for her follow up visit - I have not seen patient for follow up in almost a year (last seen on 11/20/2022) Patient states that she feels okay She denies any headaches or dizziness Denies any chest pains, no SOB No nausea/vomiting, no abdominal pain No change in bowel habits noted She has been following up with Dr. Day for her diabetes and with pain management for her chronic low back pain over the past year Has had some problems with seborrhea (dandruff) of her scalp lately and would like to get something to help clear this up [facility] Medical History Smoker Overweight (BMI 25.0-29.9) Major depression, recurrent Insomnia Vitamin D deficiency GERD (gastroesophageal reflux disease) Benign essential hypertension Pure hypercholesterolemia Type 2 diabetes mellitus with hyperglycemia Surgical History Hx of foot surgery Hx of colonoscopy History of carpal tunnel release of both wrists Family History Father Diabetes Hypertension Mother Diabetes Hypertension Social History Housing: Apartment Alcohol intake: never Patient Tobacco Use Status: Current everyday Tobacco user Cigarettes Per Day: 3 e-Cigarette/Vaping Use: Never Used Second Hand Smoke Exposure: Yes service: No Current occupational status: disabled Cognitive needs: No Hearing needs: No Vision needs: Yes Questionnaire PHQ-9 Over the last 2 weeks, how often have you been bothered by any of the following problems? 1. Little interest or pleasure in doing things: several days 2. Feeling down, depressed, or hopeless: several days 3. Trouble falling or staying asleep, or sleeping too much: not at all 4. Feeling tired or having little energy: not at all 5. Poor appetite or overeating: not at all 6. Feeling bad about yourself - or that you are a failure or have let yourself or your family down: not at all 7. Trouble concentrating on things, such as reading the newspaper or watching television: several days 8. Moving or speaking so slowly that other people could have noticed. Or the opposite - being so fidgety or restless that you have been moving around a lot more than usual: not at all 9. Thoughts that you would be better off or of hurting yourself in some way: not at all Total score: 3 Depression Screening Interpretation: Negative Depression Screening Done: Yes 48723 - PHQ-9 Billing: Yes Source: Developed by Claribel Campa Kurt Kroenke and colleagues, with an educational alyssa from [employer]. Thrive Questionnaire Date Thrive assessed: 11/18/23 I am a: Patient What is your living situation today?: I have a steady place to live Within the past 12 months, did the food you bought not last and you didn't have the money to get more?: Never true Within the past 12 months, did you worry whether your food would run out before you got money to buy more?: Never true Do you have trouble paying for medicines?: No Do you have trouble getting transportation to medical appointments?: No Do you have trouble paying your heating and electricity bill?: No Do you have trouble taking care of your child, family member or friend?: No Do you have trouble with day-to-day activities such as bathing, preparing meals, shopping, managing finances, etc.?: No Are you currently unemployed and looking for a job?: No Are you interested in more education?: No Please select the resources that you would like help with: None Currently or been in a relationship where the following occur: no concerns reported THRIVE Score: 0 AUDIT C Alcohol Use Questionnaire (AUDIT-C) 1. How often do you have a drink containing alcohol?: Never 3. How often do you have six or more drinks on one occasion?: Never Total Score: 0 Score Reviewed/Action Taken: Yes CALEB-7 AMB Questionnaire CALEB-7 Date CALEB - 7 assessed: 11/18/23 Feeling nervous, anxious, or on edge: 1 = Several days Not being able to stop or control worryin = Several days Worrying too much about different things: 0 = Not at all Trouble relaxin = Not at all Being so restless that it is hard to sit still: 0 = Not at all Becoming easily annoyed or irritable: 0 = Not at all Feeling afraid as if something awful might happen: 0 = Not at all Total CALEB-7 score (0-4 normal; 5-9 mild; 10-14 moderate; 15-21 severe): 2 Source: Developed by Claribel Campa Kurt Kroenke and colleagues, with an educational alyssa from [employer]. Review of Systems Const Denies chills, Denies fatigue, Denies fever(s) and Denies headache(s) ENT Denies dysphagia, Denies dizziness, Denies otalgia, Denies headache(s), Denies neck pain, Denies odynophagia and Denies sore throat Card Denies chest pain, Denies palpitations and Denies dyspnea Resp Denies cough and Denies dyspnea GI Denies abdominal pain, Denies constipation, Denies dysphagia, Denies heartburn, Denies diarrhea, Denies nausea and Denies odynophagia Details: (+) left flank pain Denies difficulty voiding, Denies nocturia, Denies dysuria and Denies urinary urgency Musc Reports back pain (over the lower back - chronic) and Denies neck pain Skin/Breast Reports rash ((+) scattered scaling rash on the scalp) Neuro Denies dizziness and Denies headache(s) Endo Denies fatigue and Denies palpitations Physical exam (Primary Care) Vital Signs: Last Vital Signs Pulse 88 11/18/23 17:01 BP 120/80 11/18/23 17:01 Pulse Ox 98 11/18/23 17:01 Oxygen Delivery Method Room Air 11/18/23 17:01 BMI result Body Mass Index 25.5 Tobacco/Smoking Status: Tobacco use Status Tobacco use date assessed 11/18/23 11/18/23 17:03 Patient Tobacco Use Status Current everyday Tobacco 11/18/23 17:03 e-Cigarette/Vaping Use Never Used 11/18/23 17:03 PHQ-9: PHQ-9 Score PHQ-9: Total score 3 11/18/23 17:37 Depression Screening Interpretation: Negative Thrive Assessment: Date of Thrive Assessment Date Thrive assessed 11/18/23 11/18/23 17:03 Currently or been in a relationship where the following occur: no concerns reported Const General: no acute distress and alert HENMT Ears: TM's normal bilaterally and EAC's normal Throat: Yes posterior oropharynx normal and Yes tonsils normal (no TP congestion) Neck Neck: Yes no lymphadenopathy and Yes supple Thyroid: Thyroid normal Resp Auscultation: clear to auscultation bilaterally, no rales and no wheezes Cardio Rate: regular rate Rhythm: regular rhythm Heart sounds: no murmurs GI Palpation (GI): Soft to palpation and nontender Auscultation: normal bowel sounds General: Yes no CVA tenderness Back/Spine/Pelvis Back: no CVA tenderness Thoracic/Lumbar Spine: lumbar spinal tenderness Skin Rashes: rashes noted ((+) scaling rash scattered over the scalp) Extrem General: Yes no clubbing, cyanosis or edema Assessment and Plan Assessment & Plan (1) Type 2 diabetes mellitus with hyperglycemia: Code(s): E11.65 - Type 2 diabetes mellitus with hyperglycemia Qualifiers: Diabetes mellitus [facility] insulin use: without long lines operator use Qualified Code(s): E11.65 - Type 2 diabetes mellitus with hyperglycemia Plan: Her in-office HgbA1c was at 8.2% when it was last checked in May 2023 - goal is at least <7.0% Reinforced diabetic diet She is currently on Metformin 1000 mg BID, Glipizide 10 mg QD and Trulicity 3 mg SQ once a week (dose was increased by Dr. Day when she was seen by him in May 2023) As I have not seen her in almost a year now, will send her to get some follow up labs done SUSAN Follow up with insurance administrative assistant and with endocrinology as scheduled (2) Pure hypercholesterolemia: Code(s): E78.00 - Pure hypercholesterolemia, unspecified Plan: Will send her to get her follow up labs done SUSAN as she has not had her cholesterol levels checked in over a year now Reinforced low cholesterol diet Continue Atorvastatin 40 mg QD (3) Benign essential hypertension: Code(s): I10 - Essential (primary) hypertension Plan: Reinforced low sodium diet - goal is systolic BP of 120 mm or less Continue Lisinopril 2.5 mg QD (4) GERD (gastroesophageal reflux disease): Code(s): K21.9 - Gastro-esophageal reflux disease without esophagitis Qualifiers: Esophagitis presence: without esophagitis Qualified Code(s): K21.9 - Gastro-esophageal reflux disease without esophagitis Plan: Dietary restrictions reinforced Continue Omeprazole 20 mg QD and Famotidine 40 mg QD PRN (5) Low back pain radiating to left lower extremity: Code(s): M54.50 - Low back pain, unspecified; M79.605 - Pain in left leg Plan: Reinforced activity and weight-lifting restrictions Lumbar spine x-rays done last year revealed (+) degenerative changes in the lumbar spine Continue Gabapentin 300 mg TID Follow up with pain management as scheduled (6) Vitamin D deficiency: Code(s): E55.9 - Vitamin D deficiency, unspecified Plan: Continue Vitamin D3 2000 units QD (7) Seborrhea capitis: Code(s): L21.0 - Seborrhea capitis Plan: Will start patient on Ketoconazole 2% shampoo - is instructed to use this on her scalp while in the shower no more than twice a week until her scalp lesions clear up completely (8) Insomnia: Code(s): G47.00 - Insomnia, unspecified Qualifiers: Insomnia type: unspecified Qualified Code(s): G47.00 - Insomnia, unspecified Plan: Sleep hygiene reinforced Continue Temazepam 30 mg Q HS PRN (9) Major depression, recurrent: Code(s): F33.9 - Major depressive disorder, recurrent, unspecified Qualifiers: Active/Remission status: currently active Major depression episode severity: unspecified Qualified Code(s): F33.9 - Major depressive disorder, recurrent, unspecified Plan: Continue Fluoxetine 20 mg QD and Quetiapine 50 mg Q HS Follow up with psychiatry as scheduled (10) Smoker: Code(s): F17.200 - Nicotine dependence, unspecified, uncomplicated Plan: Counseled again on smoking cessation Will start on Bupropion XL 150 mg QD to help her quit smoking (11) Overweight (BMI 25.0-29.9): Code(s): E66.3 - Overweight Plan: Reinforced diet/exercise as tolerated/lose weight Plan Follow up in 3 months Orders: Orders Comprehensive [place]. Panel Fast 11/18/23 E78.00 - Pure hypercholesterolemia, unspecified Lipid Panel 11/18/23 E78.00 - Pure hypercholesterolemia, unspecified Hemoglobin A1c 11/18/23 E11.9 - Type 2 diabetes mellitus without complications UA CC w/rflx Micro + Cult 11/18/23 R30.0 - Dysuria Vitamin B12 and Folate 11/18/23 E53.8 - Deficiency of other specified B group vitamins Complete Blood Count Auto Diff 11/18/23 D64.9 - Anemia, unspecified Microalbumin, Random (w Creat) 11/18/23 E11.9 - Type 2 diabetes mellitus without complications TSH reflex Free T4 11/18/23 E78.00 - Pure hypercholesterolemia, unspecified Vitamin D 25-OH Total 11/18/23 E55.9 - Vitamin D deficiency, unspecified Medications: New ketoconazole 2% use as instructed 1 appl topical 2XW 120 mL 0RF Coding Level of Care Code Est Pt Level 4 (29163) Diagnoses Type 2 diabetes mellitus with hyperglycemia, without long-term current use of insulin E11.65 Diabetes mellitus long lines operator insulin use: without long lines operator use Pure hypercholesterolemia E78.00 Benign essential hypertension I10 Gastroesophageal reflux disease without esophagitis K21.9 Esophagitis presence: without esophagitis Low back pain radiating to left lower extremity M54.50; M79.605 Vitamin D deficiency E55.9 Seborrhea capitis L21.0 Insomnia, unspecified type G47.00 Insomnia type: unspecified Episode of recurrent major depressive disorder, unspecified depression episode severity F33.9 Active/Remission status: currently active Major depression episode severity: unspecified Smoker F17.200 Overweight (BMI 25.0-29.9) E66.3
== END 2023-11-18 17:43 | disposition home or self-care (01) ==
PROVIDERS: PCP Internal Medicine; Visit Provider Internal Medicine
DX: E11.65 Type 2 diabetes mellitus with hyperglycemia (principal); F33.9 Major depressive disorder, recurrent, unspecified; E78.00 Pure hypercholesterolemia, unspecified; I10 Essential (primary) hypertension; K21.9 Gastro-esophageal reflux disease without esophagitis; M54.50 Low back pain, unspecified; M79.605 Pain in left leg; E55.9 Vitamin D deficiency, unspecified; L21.0 Seborrhea capitis; G47.00 Insomnia, unspecified; F17.200 Nicotine dependence, unspecified, uncomplicated; E66.3 Overweight
CPT/HCPCS: 99214

== ENCOUNTER 2023-12-17 10:15 | Outpatient (AMB) | payer OTHER, SELFPAY ==
[2023-12-17 10:17] VITALS: BP 138/70; PULSE 90; BMI 25.3
--- NOTE | 2023-12-17 10:17 | A.OFFVIS_ITS ---
Intake Vital Signs 12/17/23 10:17 Height 4 ft 11 in Weight 125 lb 3.561 oz BMI 25.3 BP 138/70 Blood Pressure Location Lt brachial Position Sitting Pulse 90 Pulse Source Pulse Oximeter Intake Visit Reasons: DM-confirmed Intake Note: Patient presents today to follow up on D2MT. Last Diabetic Eye exam: 11/2023 Last Podiatry Visit: Doesn't have one Random Glucose: 262 mg/dl HgA1c: 11.9% Animal Care Supervisor Required: Yes Animal Care Supervisor Language: Tractor Trailer Moving Van Driver Name: Vickie Information Interpreted: non-clinical & clinical Accompanied by: Self / Same As Patient Allergies iodine [IODINE] Allergy (Unknown, Verified 12/17/23 10:22) ANAPHYLAXIS IVP DYE Allergy (Severe, Uncoded 12/17/23 10:22) anaphylaxis Medication List - Last Reconciled 12/17/23 by Agustin Day MD acetaminophen ER (Arthritis Pain Relief (acetaminophen) ER) 1,300 mg (2 x 650 mg) PO Q12H PRN 30 days atorvastatin 40 mg PO DAILY blood sugar diagnostic (FreeStyle Lite Strips) As directed test 4 times a day blood-glucose meter (FreeStyle Lite Meter kit) As directed test 4 times a day bupropion HCl XL 150 mg PO QAM 30 days buspirone 5 mg PO BID cholecalciferol (vitamin D3) 50 mcg PO DAILY 90 days dulaglutide (Trulicity) 3 mg (0.5 mL) subcut QWEEK famotidine 40 mg PO DAILY fluoxetine 20 mg PO DAILY gabapentin 300 mg PO TID 30 days glipizide 10 mg PO DAILY ketoconazole 2% 1 appl topical 2XW lancets (FreeStyle Lancets) As directed test 4 times a day lisinopril 2.5 mg PO DAILY metformin 1,000 mg PO BID 90 days methocarbamol 750 mg PO Q8H PRN omeprazole 20 mg PO DAILY quetiapine mg PO temazepam (Restoril) 30 mg PO BEDTIME PRN HPI HPI Comments History of Present Illness Details 62 YO F who is seen in consultation for T2DM at the request of PCP. Initially diagnosed with T2DM in 10 yrs . Never seen endo Was initially started on treatment with Januvia .stopped Current regimen trulicity 3 mg Qwkly Glipizide 10 mg QD Metformin 1000mg BID. Unfortunately, patient did not bring log book or glucometer to follow-up visit No hypoglycemia Family history of T2DM in mother, father . Has eyes checked yearly, last eye exam 1 1/2 yr needs to make appt , denies retinopathy. Denies neuropathy,Not sees podiatry. Denies nephropathy, on ANA/ARB. Has HLD, on statin. . Denies CAD. Had diabetes education. [facility] Medical History Smoker Overweight (BMI 25.0-29.9) Major depression, recurrent Insomnia Vitamin D deficiency GERD (gastroesophageal reflux disease) Benign essential hypertension Pure hypercholesterolemia Type 2 diabetes mellitus with hyperglycemia Surgical History Hx of foot surgery Hx of colonoscopy History of carpal tunnel release of both wrists Family History Father Diabetes Hypertension Mother Diabetes Hypertension Social History Housing: Apartment Alcohol intake: never Patient Tobacco Use Status: Current everyday Tobacco user Cigarettes Per Day: 3 e-Cigarette/Vaping Use: Never Used Second Hand Smoke Exposure: Yes service: No Current occupational status: disabled Cognitive needs: No Hearing needs: No Vision needs: Yes Physical Exam Vital Signs: Last Vital Signs Pulse 90 12/17/23 10:17 BP 138/70 12/17/23 10:17 BMI result Body Mass Index 25.3 Absence of Cushingoid features. Absence of acromegalic features. Neck exam reveals nl size thyroid about 15 gms. No thyroid nodules palpable. No carotid bruits present. Lungs CTA. Heart S1 S2, Reg R/R. No M/R/ G. Skin exam reveals absence of vitiligo or acanthosis nigricans. Abdominal exam reveals Soft NT/ND with NA BS. No organomegaly present. Neck Other: . Extrem Other: Visual exam of foot performed. No ulcerations or open lesions. No onchomycosis, no callouses.Pulses 2 + distally Sensation intact to monofilament exam. Vibratory sensation sensed is intact with 128 Hz tuning fork Results AMB Hemoglobin A1c AMB Hemoglobin A1c 11.9 % Last Edit by ANSLEY Castillo on 12/17/23 10:49 Results Reviewed Results Reviewed: Laboratory Last Values Glucose (Clinic) 262 mg/dL (60-115) H 12/17/23 10:24 Hgb A1c (Clinic) 11.9 % (4.0-6.0) H 12/17/23 10:28 Assessment & Plan Assessment & Plan (1) Type 2 diabetes mellitus with hyperglycemia: Code(s): E11.65 - Type 2 diabetes mellitus with hyperglycemia Qualifiers: Diabetes mellitus half-way insulin use: without half-way use Qualified Code(s): E11.65 - Type 2 diabetes mellitus with hyperglycemia Plan: This 63-year-old female with history of type 2 diabetes being treated metformin, Trulicity and glipizide with poor glycemic control and no known microvascular or macrovascular complications. Plan is to have the patient check her point cares pre and post meals. She was advised to bring the glucometer with her to follow-up appointments. . We the help of loft patternmaker, explained the relationship poor glycemic control to development and progression complication. At this point we will need to start insulin Lantus and Humalog . Will be with simulation educator this week to learn insulin administration and sensor use. Would start 15 units of Lantus and 5 units of Humalog before each meal Orders: Orders AMB Hemoglobin A1c Today E11.8 - Type 2 diabetes mellitus with unspecified complications, Z13.9 - Encounter for screening, unspecified Medications: New insulin lispro (Humalog KwikPen (U-100) Insulin) 5 units (0.05 mL) subcut TID 15 mL 4RF pen needle, diabetic (Comfort EZ Pen [place]) As directed injects 4X/day 100 ea 4RF blood-glucose sensor (FreeStyle Jessica 3 Sensor device) As directed change every 14 days 2 ea 4RF blood-glucose meter,continuous (FreeStyle Jessica 3 [place]) As directed 1 ea 0RF insulin glargine (Lantus Solostar U-100 Insulin) 15 units (0.15 mL) subcut DAILY 15 mL 4RF Coding Level of Care Code Est Pt Level 4 (37908) Diagnoses Type 2 diabetes mellitus with hyperglycemia, without long-term current use of insulin E11.65 Diabetes mellitus terminal makeup operator insulin use: without half-way use
[2023-12-17 10:27] LABS: Glucose, Whole Blood 262 mg/dL (60-115)
== END 2023-12-17 11:09 | disposition home or self-care (01) ==
PROVIDERS: PCP Internal Medicine; Visit Provider Internal Medicine Endocrinology, Diabetes & Metabolism
DX: Z13.9 Encounter for screening, unspecified (principal); E11.8 Type 2 diabetes mellitus with unspecified complications; E11.65 Type 2 diabetes mellitus with hyperglycemia
CPT/HCPCS: 99214

== ENCOUNTER → 2023-12-17 10:15 | Outpatient (BNVA) | payer OTHER, SELFPAY | PROVIDERS: PCP Internal Medicine; Visit Provider Internal Medicine Endocrinology, Diabetes & Metabolism | DX: E11.65 Type 2 diabetes mellitus with hyperglycemia (principal); Z79.4 Long term (current) use of insulin | CPT/HCPCS: 82947; 83036; 99212 ==

== ENCOUNTER 2023-12-18 10:05 | Outpatient (AMB) | payer OTHER, SELFPAY ==
--- NOTE | 2023-12-18 10:31 | A.OFFVIS_ITS ---
Intake Intake Visit Reasons: DM Construction Specialist Required: Yes Construction Specialist Language: Public Welfare Worker Name: Janine [facility] [place] Information Interpreted: non-clinical & clinical Accompanied by: Self / Same As Patient Allergies iodine [IODINE] Allergy (Unknown, Verified 12/17/23 10:22) ANAPHYLAXIS IVP DYE Allergy (Severe, Uncoded 12/17/23 10:22) anaphylaxis HPI Comprehensive Diabetes Asmnt Most Recent Diabetes Results: Microalb/Creat Ratio 11.3 ug/mg cr 11/15/22 Cholesterol 173 mg/dL 11/15/22 HDL Cholesterol 46 mg/dL 11/15/22 Triglycerides 133 mg/dL 11/15/22 Creatinine 0.83 mg/dL (0.5-1.4) 11/15/22 Blood Urea Nitrogen 15 mg/dL (9-16) 11/15/22 Sodium 139 mmol/L (135-145) 11/15/22 Potassium 4.9 mmol/L (3.3-5.1) 11/15/22 Chloride 104 mmol/L (96-108) 11/15/22 Carbon Dioxide 22 mmol/L (22-29) 11/15/22 Calcium 10.1 mg/dL (8.4-10.2) 11/15/22 AST 29 U/L (5-31) 11/15/22 ALT 39 U/L (0-31) H 11/15/22 Total Protein 6.8 g/dL (6.5-8.0) 11/15/22 Albumin 4.3 g/dL (3.5-5.0) 11/15/22 PFSH Medical History Smoker Overweight (BMI 25.0-29.9) Major depression, recurrent Insomnia Vitamin D deficiency GERD (gastroesophageal reflux disease) Benign essential hypertension Pure hypercholesterolemia Type 2 diabetes mellitus with hyperglycemia Surgical History Hx of foot surgery Hx of colonoscopy History of carpal tunnel release of both wrists Family History Father Diabetes Hypertension Mother Diabetes Hypertension Social History Housing: Apartment Alcohol intake: never Patient Tobacco Use Status: Current everyday Tobacco user Cigarettes Per Day: 3 e-Cigarette/Vaping Use: Never Used Second Hand Smoke Exposure: Yes service: No Current occupational status: disabled Cognitive needs: No Hearing needs: No Vision needs: Yes Assessment & Plan Assessment & Plan (1) Type 2 diabetes mellitus with hyperglycemia: Code(s): E11.65 - Type 2 diabetes mellitus with hyperglycemia Qualifiers: Diabetes mellitus care home insulin use: without watermelon harvesting supervisor use Qualified Code(s): E11.65 - Type 2 diabetes mellitus with hyperglycemia Plan: Insulin/Incretin?Mimetic Education visit Patient Education: Patient was instructed and provided with demonstration of the following: Insulin action and Incretin Mimetics medication storage how to set up medication pen/or syringe and vial Handwashing insulin injection site rotation Site rotation recognizing hypertrophy Testing blood glucose Removing and disposing needle from insulin pen Safe disposal of sharps Target blood sugar Signs/ symptoms/treatment of hypoglycemia/hyperglycemia expiration of open insulin pen Patient verbalized understanding of education provided and was able to demonstrate proper use of inject into injection pillow Reviewed rule of 15s to treat glucose under 70 mg/dL Patient will be starting Lantus 15 units daily Humalog 5 units prior to meals Patient also prescribed Jessica 3 reader and sensors, instructed patient to make appointment set up CGM in 1 week Patient currently using glucometer to test glucose, did not bring glucometer to today's visit All questions were answered and patient was advised to contact the office with any questions or concerns. Patient Instructions: Patient will follow-up in 1 week Coding Level of Care Code Est Pt Level 1 (12894) Diagnoses Type 2 diabetes mellitus with hyperglycemia, without long-term current use of insulin E11.65 Diabetes mellitus watermelon harvesting supervisor insulin use: without watermelon harvesting supervisor use
== END 2023-12-18 10:33 | disposition home or self-care (01) ==
LOC: HO.ENCR 10:05
PROVIDERS: PCP Internal Medicine; Visit Provider Registered Nurse Diabetes Educator
DX: E11.65 Type 2 diabetes mellitus with hyperglycemia (principal)

== ENCOUNTER → 2023-12-18 10:05 | Outpatient (BNVA) | payer OTHER, SELFPAY | PROVIDERS: PCP Internal Medicine; Visit Provider Registered Nurse Diabetes Educator | DX: E11.65 Type 2 diabetes mellitus with hyperglycemia (principal) | CPT/HCPCS: 99211 ==

== ENCOUNTER 2024-01-15 11:32 | Outpatient (AMB) | payer OTHER, SELFPAY ==
--- NOTE | 2024-01-15 11:45 | A.OFFVIS_ITS ---
Intake Intake Visit Reasons: DM Bliss Press Operator Required: Yes Bliss Press Operator Language: Farmer General Name: [place] [facility] [place] by: Self / Same As Patient Allergies iodine [IODINE] Allergy (Unknown, Verified 12/17/23 10:22) ANAPHYLAXIS IVP DYE Allergy (Severe, Uncoded 12/17/23 10:22) anaphylaxis HPI Comprehensive Diabetes Asmnt Most Recent Diabetes Results: Microalb/Creat Ratio 11.3 ug/mg cr 11/15/22 Cholesterol 173 mg/dL 11/15/22 HDL Cholesterol 46 mg/dL 11/15/22 Triglycerides 133 mg/dL 11/15/22 Creatinine 0.83 mg/dL (0.5-1.4) 11/15/22 Blood Urea Nitrogen 15 mg/dL (9-16) 11/15/22 Sodium 139 mmol/L (135-145) 11/15/22 Potassium 4.9 mmol/L (3.3-5.1) 11/15/22 Chloride 104 mmol/L (96-108) 11/15/22 Carbon Dioxide 22 mmol/L (22-29) 11/15/22 Calcium 10.1 mg/dL (8.4-10.2) 11/15/22 AST 29 U/L (5-31) 11/15/22 ALT 39 U/L (0-31) H 11/15/22 Total Protein 6.8 g/dL (6.5-8.0) 11/15/22 Albumin 4.3 g/dL (3.5-5.0) 11/15/22 PFSH Medical History Smoker Overweight (BMI 25.0-29.9) Major depression, recurrent Insomnia Vitamin D deficiency GERD (gastroesophageal reflux disease) Benign essential hypertension Pure hypercholesterolemia Type 2 diabetes mellitus with hyperglycemia Surgical History Hx of foot surgery Hx of colonoscopy History of carpal tunnel release of both wrists Family History Father Diabetes Hypertension Mother Diabetes Hypertension Social History Housing: Apartment Alcohol intake: never Patient Tobacco Use Status: Current everyday Tobacco user Cigarettes Per Day: 3 e-Cigarette/Vaping Use: Never Used Second Hand Smoke Exposure: Yes service: No Current occupational status: disabled Cognitive needs: No Hearing needs: No Vision needs: Yes Assessment & Plan Assessment & Plan (1) Type 2 diabetes mellitus with hyperglycemia: Code(s): E11.65 - Type 2 diabetes mellitus with hyperglycemia Qualifiers: Diabetes mellitus penitentiary insulin use: without penitentiary use Qualified Code(s): E11.65 - Type 2 diabetes mellitus with hyperglycemia Plan: Learning objectives: The patient was provided with verbal and written education on the following topics as outlined below. Assess patient education level/literacy/barriers Patient questions/concerns, patient reports that she has started both basal and bolus insulin, denies any episodes of hypoglycemia. Did not bring meter to today's visit. Patient also received Jessica 3 supplies but did not bring to today's visit. The patient met all learning objectives and was able to verbalize understanding and provide teach back of education topics discussed . The patient was provided with the opportunity to ask questions and all questions were answered. Topics covered in today?s session included: Insulin/Injectables (If applicable) * Storage/care of insulin?? * Injection sites? * Site rotation? * Onset, peak, duration * Drawing up insulin? * Injecting insulin/other injectables? * Sharps disposal Continuous blood glucose monitoring (if applicable) Hypoglycemia and Hyperglycemia * Signs and symptoms? * Causes?? * Treatment? * Preventing hypoglycemia? * When to seek medical attention * Blood glucose targets and how you feel when your blood glucose is in and out of your target ranges. * Monitoring and knowing your A1C. * What can make blood glucose go up and down and preventing high and low blood glucose. * Review of blood sugar targets in expected goal range and outside of expected goal range. * Problem solving and preventing hyper/hypoglycemia. ?Patient was receptive to information provided and participated in the discussion. Asked?appropriate questions and demonstrated good understanding of the topics discussed.? ? Educational Materials: The patient was provided with the following written educational materials: Target Goal handout New Smart Goal: Patient will bring glucose meter to [facility] Patient Response to instructions: Comprehension of Instructions: Fair Readiness to make changes:? Contemplation How confident they feel about making changes: Fair Patient Instructions: Follow-up with inclusion special educator in 1 week for Jessica set up and glucose review Coding Level of Care Code Est Pt Level 1 (30078) Diagnoses Type 2 diabetes mellitus with hyperglycemia, without long-term current use of insulin E11.65 Diabetes mellitus penitentiary insulin use: without penitentiary use
== END 2024-01-15 11:46 | disposition home or self-care (01) ==
PROVIDERS: PCP Internal Medicine; Visit Provider Registered Nurse Diabetes Educator
DX: E11.65 Type 2 diabetes mellitus with hyperglycemia (principal)

== ENCOUNTER → 2024-01-15 11:32 | Outpatient (BNVA) | payer OTHER, SELFPAY | PROVIDERS: PCP Internal Medicine; Visit Provider Registered Nurse Diabetes Educator | DX: E11.65 Type 2 diabetes mellitus with hyperglycemia (principal) | CPT/HCPCS: 99211 ==

== ENCOUNTER 2025-02-01 12:13 | Emergency (ER) | payer OTHER, SELFPAY ==
--- NOTE | ~2025-02-01 | CT_ITS ---
EXAMINATION: CT ABDOMEN AND PELVIS WITHOUT CONTRAST CLINICAL INFORMATION: Left lower quadrant pain. COMPARISON: 09/16/2019. TECHNIQUE: Multidetector volumetric imaging was performed from the superior aspect of the liver through the pubic symphysis. Sagittal and coronal reformatted images were obtained on the technologist's workstation. This CT examination was performed using dose optimization techniques as appropriate, variously including the following: *Automated exposure control *Adjustment of mA and/or kV according to patient size (this includes techniques or standardized protocols for targeted exams where dose is matched to indication/reason for exam; i.e. extremities or head) *Use of iterative reconstruction technique FINDINGS: LUNG BASES: The lung bases demonstrate gravity dependent mild subpleural atelectasis in the bilateral lower lobes. No effusions. Small airways appear normal. There are a few scattered calcified granulomata. The heart size is normal. No pericardial effusion. Moderate sized paraesophageal hernia. LIVER, GALLBLADDER, AND BILIARY TREE: The liver is normal in size, shape, and attenuation. No focal hepatic lesion or biliary ductal dilatation is present. The gallbladder is unremarkable with no evidence of radiopaque gallstones, gallbladder wall thickening, or obvious pericholecystic inflammatory changes. PANCREAS: Unremarkable. SPLEEN: Unremarkable. ADRENAL GLANDS: Unremarkable. KIDNEYS AND URETERS: The kidneys are normal in size, shape, and attenuation. No hydronephrosis or hydroureter. There are 2 nonobstructing calculi in the right kidney, the larger measuring 3 mm in the upper pole. There are no left renal calculi. BLADDER: Unremarkable. GASTROINTESTINAL TRACT: There is moderate to extensive descending colonic and sigmoid colonic diverticulosis. There is mild right-sided diverticulosis. There is focal inflammation/acute diverticulitis of a short segment of mid descending colon (series 5, image 40). There is no complication. Normal appendix is visualized. The small bowel is normal. The stomach is decompressed. The duodenum appears normal. ABDOMINAL WALL: No significant hernia is appreciated. LYMPH NODES: Normal. VASCULAR: Mild atheromatous calcification of the aorta and iliac arteries without aneurysm. PELVIC VISCERA: The uterus and adnexa are unremarkable. OSSEOUS STRUCTURES: There is no suspicious lytic or blastic bone lesion. There is mild levoconvex scoliosis and mild to moderate degenerative spondylosis of the imaged spine. Mild degenerative changes in both hip joints. CT/CT abdomen pelvis wo IV con IMPRESSION: 1. Acute noncomplicated diverticulitis of the mid descending colon. There is extensive diverticulosis of the descending and sigmoid colon. 2. Nonobstructing right nephrolithiasis. 3. There is a moderate-sized paraesophageal hiatus hernia. Electronically signed by: Zachary Villatoro MD 02/01/2025 03:39 PM EDT
--- NOTE | 2025-02-01 12:25 | ED.ABDPAIN ---
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 Denies nausea, vomiting, diarrhea, or constipation. Denies hematuria, frequency, dysuria but does report increased pain with urination. Denies fevers. States pain feels similar to prior kidney stones. MD elicited complaint: abdominal pain Related Data Home Medications ?Medication ?Instructions ?Recorded ?Confirmed fluoxetine 20 mg capsule 20 mg PO DAILY 06/15/20 11/25/23 omeprazole 20 mg capsule,delayed 20 mg PO DAILY 06/15/20 11/25/23 release temazepam 30 mg capsule (Restoril) 30 mg PO BEDTIME PRN 06/15/20 11/25/23 buspirone 5 mg tablet 5 mg PO BID 02/25/23 11/25/23 quetiapine 50 mg tablet mg PO 02/25/23 11/25/23 Previous Rx's ?Medication ?Instructions ?Recorded methocarbamol 750 mg tablet 750 mg PO Q8H PRN for muscle spasm 12/12/22 #90 tabs famotidine 40 mg tablet 40 mg PO DAILY #90 tabs 01/24/23 metformin 1,000 mg tablet 1,000 mg PO BID 90 days #180 tabs 01/24/23 acetaminophen 650 mg 1,300 mg (2 x 650 mg) PO Q12H PRN 01/30/23 tablet,extended release (Arthritis for pain 30 days #120 tabs Pain Relief (acetaminophen) ER) cholecalciferol (vitamin D3) 50 50 mcg PO DAILY 90 days #90 caps 03/06/23 mcg (2,000 unit) capsule blood sugar diagnostic (FreeStyle #100 ea 04/15/23 Lite Strips) blood-glucose meter (FreeStyle #1 ea 04/15/23 Lite Meter kit) lancets 28 gauge (FreeStyle #100 ea 04/15/23 Lancets) gabapentin 300 mg capsule 300 mg PO TID 30 days #90 caps 05/13/23 dulaglutide 3 mg/0.5 mL 3 mg (0.5 mL) subcut QWEEK #2 mL 05/15/23 subcutaneous pen injector (Trulicity) bupropion HCl 150 mg 24 hr tablet, 150 mg PO QAM 30 days #30 tabs 08/22/23 extended release ketoconazole 2 % shampoo 1 appl topical 2XW #120 mL 11/18/23 atorvastatin 40 mg tablet 40 mg PO DAILY #90 tabs 12/17/23 blood-glucose sensor (FreeStyle #2 ea 12/17/23 Jessica 3 Sensor device) blood-glucose,state epidemiologist,cont #1 ea 12/17/23 (FreeStyle Jessica 3 [place]) insulin glargine 100 unit/mL (3 15 unit (0.15 mL) subcut DAILY #15 12/17/23 mL) subcutaneous pen (Lantus mL Solostar U-100 Insulin) insulin lispro 100 unit/mL 5 unit (0.05 mL) subcut TID #15 mL 12/17/23 subcutaneous pen (Humalog KwikPen (U-100) Insulin) lisinopril 2.5 mg tablet 2.5 mg PO DAILY #90 tabs 12/17/23 pen needle, diabetic 32 gauge x #100 ea 12/17/23/ (Comfort EZ Pen [place]) glipizide 10 mg tablet 10 mg PO DAILY #90 tabs 01/02/24 amoxicillin 875 mg-potassium 1 tab PO TID 7 days #21 tabs 02/01/25 clavulanate 125 mg tablet Allergies Allergy/AdvReac Type Severity Reaction Status Date / Time iodine [IODINE] Allergy Unknown ANAPHYLAXIS Verified 02/01/25 12:31 IVP DYE Allergy Severe anaphylaxis Uncoded 12/17/23 10:22 Review of Systems Review of Systems As per HPI Yes all other systems are reviewed and are negative Constitutional: Reports as per HPI PMFSH Past Medical History Medical History Smoker Overweight (BMI 25.0-29.9) Major depression, recurrent Insomnia Vitamin D deficiency GERD (gastroesophageal reflux disease) Benign essential hypertension Pure hypercholesterolemia Type 2 diabetes mellitus with hyperglycemia Surgical History Hx of foot surgery Hx of colonoscopy History of carpal tunnel release of both wrists Family History Family History Father Diabetes Hypertension Mother Diabetes Hypertension Social History Social History Housing: Apartment Alcohol intake: never Patient Tobacco Use Status: Current everyday Tobacco user Cigarettes Per Day: 3 Smoked in Last 30 Days: Yes e-Cigarette/Vaping Use: Never Used Second Hand Smoke Exposure: Yes Use of substances other than those prescribed or required for medical reasons: No Advance Directives: No Advance Directives Information Provided: Yes Patient : No service: No Current occupational status: disabled Cognitive needs: No Hearing needs: No Vision needs: Yes Physical Exam ED Vital Signs: Vital Signs - 24 hr 02/01/25 12:26 02/01/25 14:12 02/01/25 16:32 Temperature 97.3 F 98.3 F 98.0 F Pulse Rate 85 60 56 Respiratory Rate 16 14 16 Blood Pressure 127/61 143/69 H 126/64 Pulse Oximetry 98 97 100 Oxygen Delivery Method Room Air Room Air Room Air BMI result Body Mass Index 24.8 Vital signs have been reviewed and appear to be correct. Blood pressure normal. Heart rate normal. Respiratory rate normal. Temperature normal. Oxygen saturation normal. Const General: cooperative, healthy appearing and no acute distress Orientation/consciousness: oriented to person, oriented to place, oriented to time and patient oriented x3 Limitations: no limitations HENMT Head: Yes normocephalic and Yes atraumatic Ears: external ears normal General nose exam: Normal external nose present Face and sinus: Yes face symmetric Mouth: oropharynx normal and moist mucous membranes Throat: Yes uvula midline Eyes Pupils: Equal, round and reactive pupils present Neck Neck: Yes normal visual inspection and Yes supple Resp Effort & Inspection: normal respiratory effort and able to speak in complete sentences Auscultation: clear to auscultation bilaterally Cardio Rate: regular rate Rhythm: regular rhythm Heart sounds: S1 normal heart sound present and S2 normal heart sound present GI Palpation (GI): Soft to palpation and Tenderness to palpation present (GI) in the LLQ Auscultation: normoactive bowel sounds General: Yes no CVA tenderness Back/Spine/Pelvis Back: no CVA tenderness Skin General skin exam: elasticity normal and turgor normal Neuro General: oriented to person, oriented to place, oriented to time, patient oriented x3, moves all extremities, no focal motor deficits and CN's II-XI intact bilaterally Cranial nerves: Yes Equal, round and reactive pupils present Cognition (Neuro): normal cognition Extrem General: Yes full ROM, Yes no pedal edema and Yes no calf tenderness Psych Mental Status: mental status grossly normal Affect: normal affect Thought process: Normal thought process present Course Course Course Narrative: This is a Rapid Medical Exam performed in triage by Venita San PA-C. Full HPI, ROS and PE to be performed by primary ED provider. 64 yo Armenian speaking F with past medical history of HLD, HTN, GERD, diabetes, insomnia, presenting to the ED c/o constant left lower abdominal pain x3 days. Pain worse when she urinates. Admits to similar sx in the past from kidney stones. denies N/V/D, fever, urinary sx PE: Abdomen is soft with epigastric and lower abdominal tenderness, no rebound or guarding Plan: labs, UA Medical Decision Making Medical Decision Making [facility] Narrative: Patient is a 64-year-old female with history of T2DM, HTN, GERD, depression, kidney stones presenting to the ED with complaint of left lower quadrant pain for the past 3 days. On exam patient is awake, A+Ox3, VS WNL, afebrile, normal neurological exam without focal deficits, physical exam findings as above. Given reported symptoms and physical exam findings, initial differential includes but is not limited to renal colic, ureteral, hydronephrosis, diverticulitis. Labs notable for mild leukocytosis without left shift, elevated glucose without anion gap, no other significant electrolyte abnormalities. Urinalysis without evidence of infection, no hematuria. CT A/P notable for acute uncomplicated diverticulitis of mid descending colon. My interpretation is in agreement with the radiologist's interpretation. Results discussed with patient all questions answered. Will discharge patient home on Augmentin, advised follow up with PCP. Return precautions discussed at bedside. Patient verbalized understanding of and agreement with plan. In-person food service director was utilized for all interactions, assessments, and discussions. Differential Diagnosis Differential Diagnoses: The differential diagnosis associated with the presentation includes as per MDM Admission/Observation Consideration of admission/observation: Escalation of care including admission/observation considered Patient would have been admitted to the hospital had their work up had any findings where hospital admission was appropriate and their clinical presentation warranted hospital admission. Lab Data [facility] Lab Attestation statement: I reviewed the patient's lab results. as per [facility] 02/01/25 12:45 02/01/25 12:45 Labs: Lab Results 02/01/25 Range/Units 12:45 WBC 13.8 H (4.8-10.8) X10*3/uL RBC 4.26 (4.20-5.50) X10*6/uL Hgb 13.9 (12.0-16.0) g/dl Hct 40.2 (37.0-47.0) % MCV 94.4 (80.0-98.0) fL MCH 32.6 (27.0-33.0) pg MCHC 34.6 (31.0-35.0) g/dl RDW 13.0 (11.0-16.0) % Plt Count 300 (160-400) X10*3/uL MPV 10.0 (9.4-12.3) fL Immature Gran % (Auto) 0.4 (0.0-0.4) % Neut % (Auto) 70.6 (45-73) % Lymph % (Auto) 20.2 (20-40) % [place] % (Auto) 6.9 (2-11) % Eos % (Auto) 1.2 (0-4) % Baso % (Auto) 0.7 (0-2) % Lymph # (Auto) 2.8 (1.2-4.9) X10*3/uL [place] # (Auto) 1.0 (0.1-1.2) X10*3/uL Eos # (Auto) 0.2 (0.0-0.4) X10*3/uL Baso # (Auto) 0.1 (0.0-0.2) X10*3/uL Abs Immat Gran (auto) 0.05 H (0.00-0.03) X10*3/uL Absolute Neuts (auto) 9.8 H (2.0-8.3) x10*3/uL Absolute Nucleated RBC 0.000 (0.0-0.012) X10*3/uL Nucleated RBC % (auto) 0.0 (0.0-0.2) /100WBC Sodium 138 (135-145) mmol/L Potassium 4.3 (3.3-5.1) mmol/L Chloride 103 (96-108) mmol/L Carbon Dioxide 29 (22-29) mmol/L Anion Gap 10 L (12-20) BUN 13 (9-16) mg/dL Creatinine 0.71 (0.5-1.4) mg/dL Estim Creat Clear Calc 60.9 Estimated GFR > 60 Random Glucose 228 H (60-115) mg/dL Calcium 10.0 (8.4-10.2) mg/dL Magnesium 2.0 (1.6-2.6) mg/dL Total Bilirubin 0.5 (0.0-1.0) mg/dL Direct Bilirubin 0.2 (0.0-0.5) mg/dL AST 19 (5-31) U/L ALT 22 (0-31) U/L Alkaline Phosphatase 166 H (39-117) U/L Total Protein 7.7 (6.5-8.0) g/dL Albumin 4.4 (3.5-5.0) g/dL Lipase 15 (8-78) U/L Urine Color Yellow Urine Appearance Clear Urine pH 5.5 (5.0-9.0) Ur Specific [place] >= 1.030 H (1.005-1.025) Urine Protein 30 (1+) H (Neg-Trace) mg/dL Urine Glucose (UA) >=1000 H (Negative) mg/dL Urine Ketones Trace (Negative) mg/dL Urine Blood Negative (Negative) Urine Nitrite Negative (Negative) Ur Leukocyte Esterase Negative (Negative) Urine RBC 0-2 (0-2) /HPF Urine WBC 0-5 (0-5) /HPF Ur Squamous Epith Cells 0-2 (0-2) /HPF Urine Bacteria None Seen (None Seen) Hyaline Casts 0-2 (0-2) /LPF Independent Interpretation I performed an independent interpretation of an: CT Scan Interpretation: CT A/P shows diverticulitis. Radiology Impression Discussion of test interpretation with radiology: I have reviewed the radiologist's reading. Radiologist Impression: CT/CT abdomen pelvis wo IV con IMPRESSION: 1. Acute noncomplicated diverticulitis of the mid descending colon. There is extensive diverticulosis of the descending and sigmoid colon. 2. Nonobstructing right nephrolithiasis. 3. There is a moderate-sized paraesophageal hiatus hernia. External Record Review External record reviewed: Inpatient record, Office record and Outpatient record Prescription Management I considered prescription management with: Antibiotic Medications Administered Discontinued Medications Generic Name Dose Route Start Last Admin Trade Name Freq PRN Reason Stop Dose Admin Ketorolac Tromethamine 15 mg 02/01/25 15:30 02/01/25 16:39 Ketorolac Tromethamine 15 Mg/Ml Vial IVPUSH 02/01/25 15:31 15 mg ONCE ONE Administration Discharge Plan Discharge Clinical Impression: Diverticulitis Patient Disposition: Home, Self-Care Instructions: Diverticulitis (DC) Additional Instructions: You were evaluated in the emergency department today for abdominal pain. Your CT scan showed evidence of diverticulitis. You are being treated with an antibiotic, please complete the full course as prescribed even if your symptoms improve. We recommend that you follow-up with your primary care provider. You can use 600 mg ibuprofen or 650 mg of Tylenol every 6 hours as needed for pain. Return to the emergency department if you develop worsening pain, fever, persistent vomiting, blood in your vomit or stool, or any other new or concerning symptoms. Prescriptions: New amoxicillin-pot clavulanate 875-125 mg tablet 1 tab PO TID 7 Days Qty: 21 0RF No Action methocarbamol 750 mg tablet 750 mg PO Q8H PRN (Reason: for muscle spasm) Qty: 90 0RF metformin 1,000 mg tablet 1,000 mg PO BID 90 Days Qty: 180 3RF famotidine 40 mg tablet 40 mg PO DAILY Qty: 90 3RF acetaminophen [Arthritis Pain Relief (acetam)] 650 mg tablet extended release 1,300 mg PO Q12H PRN (Reason: for pain) 30 Days Qty: 120 6RF cholecalciferol (vitamin D3) 50 mcg (2,000 unit) capsule 50 mcg PO DAILY 90 Days Qty: 90 3RF (DME) blood-glucose meter [FreeStyle Lite Meter] Kit See Rx Instructions .Route Qty: 1 0RF Rx Instructions: As directed test 4 times a day (DME) FreeStyle Lite Strips Strip See Rx Instructions .Route Qty: 100 5RF Rx Instructions: As directed test 4 times a day (DME) lancets [FreeStyle Lancets] 28 gauge misc See Rx Instructions .Route Qty: 100 5RF Rx Instructions: As directed test 4 times a day gabapentin 300 mg capsule 300 mg PO TID 30 Days Qty: 90 5RF bupropion HCl 150 mg tablet extended release 24 hr 150 mg PO QAM 30 Days Qty: 30 1RF Rx Instructions: Have not been seen since November 2022 and needs to schedule follow up appt SUSAN lisinopril 2.5 mg tablet 2.5 mg PO DAILY Qty: 90 0RF atorvastatin 40 mg tablet 40 mg PO DAILY Qty: 90 0RF Rx Instructions: Have not been seen since November 2022 and needs to schedule follow up appt SUSAN glipizide 10 mg tablet 10 mg PO DAILY Qty: 90 0RF ketoconazole 2 % shampoo 1 appl topical 2XW Qty: 120 0RF Rx Instructions: use as instructed temazepam [Restoril] 30 mg capsule 30 mg PO BEDTIME PRN fluoxetine 20 mg capsule 20 mg PO DAILY omeprazole 20 mg capsule,delayed release(DR/EC) 20 mg PO DAILY quetiapine 50 mg tablet PO buspirone 5 mg tablet 5 mg PO BID Trulicity 3 mg/0.5 mL pen injector 3 mg subcut QWEEK Qty: 2 5RF insulin glargine [Lantus Solostar U-100 Insulin] 100 unit/mL (3 mL) insulin pen 15 unit subcut DAILY Qty: 15 4RF insulin lispro [Humalog KwikPen Insulin] 100 unit/mL insulin pen 5 unit subcut TID Qty: 15 4RF (DME) pen needle, diabetic [Comfort EZ Pen [place]] 32 gauge x 5/16 needle See Rx Instructions .Route Qty: 100 4RF Rx Instructions: As directed injects 4X/day (DME) FreeStyle Jessica 3 Sensor Device See Rx Instructions .Route Qty: 2 4RF Rx Instructions: As directed change every 14 days (DME) FreeStyle Jessica 3 [place] Misc See Rx Instructions .Route Qty: 1 0RF Rx Instructions: As directed Print Language: Armenian
[2025-02-01 12:26] VITALS: BP 127/61; PULSE 85; RESP 16; TEMP 36.3; O2SAT 98; BMI 24.8
[2025-02-01 12:50] LABS: MANUAL DIFF FLAG NO
[2025-02-01 12:52] LABS: Basophils Absolute Auto 0.1 X10*3/uL (0.0-0.2); Basophils Percent Auto 0.7 % (0-2); Eosinophils Absolute Auto 0.2 X10*3/uL (0.0-0.4); Eosinophils Percent Auto 1.2 % (0-4); Hematocrit 40.2 % (37.0-47.0); Hemoglobin 13.9 g/dl (12.0-16.0); Imm Gran Abs Auto 0.05 X10*3/uL (0.00-0.03); Imm Gran Pct Auto 0.4 % (0.0-0.4); Lymphocytes Absolute Auto 2.8 X10*3/uL (1.2-4.9); Lymphocytes Percent Auto 20.2 % (20-40); Mean Corpuscular HGB Conc 34.6 g/dl (31.0-35.0); Mean Corpuscular Hemoglobin 32.6 pg (27.0-33.0); Mean Corpuscular Volume 94.4 fL (80.0-98.0); Monocytes Percent Auto 6.9 % (2-11); Neutrophils Absolute Auto 9.8 x10*3/uL (2.0-8.3); Neutrophils Percent Auto 70.6 % (45-73); Platelet Count 300 X10*3/uL (160-400); Red Blood Count 4.26 X10*6/uL (4.20-5.50); White Blood Count 13.8 X10*3/uL (4.8-10.8)
[2025-02-01 12:54] LABS: Appearance Urine Clear; Color Urine Yellow; Glucose Urine UA >=1000 mg/dL (Negative); Leukocyte Esterase Urine Negative (Negative); Nitrite Urine Negative (Negative); PH 5.5 (5.0-9.0); Specific Gravity - Urine >= 1.030 (1.005-1.025); UMIC TRIGGER UACC YES; Urine Blood Negative (Negative); Urine Ketones Trace mg/dL (Negative); Urine Protein 30 (1+) mg/dL (Neg-Trace)
[2025-02-01 13:00] LABS: Bacteria Urine None Seen (None Seen); Hyaline Casts Urine 0-2 /LPF (0-2); RBC Urine 0-2 /HPF (0-2); Squamous Epithelial Cell Urine 0-2 /HPF (0-2); WBC Urine 0-5 /HPF (0-5)
[2025-02-01 13:08] LABS: Alanine Aminotransferase 22 U/L (0-31); Albumin Level 4.4 g/dL (3.5-5.0); Alkaline Phosphatase 166 U/L (39-117); Anion Gap 10 (12-20); Aspartate Amino Transferase 19 U/L (5-31); Bilirubin Direct 0.2 mg/dL (0.0-0.5); Bilirubin Total 0.5 mg/dL (0.0-1.0); Blood Urea Nitrogen 13 mg/dL (9-16); Carbon Dioxide 29 mmol/L (22-29); Chloride 103 mmol/L (96-108); Creatinine Clr Calc Pharmacy 60.9; Estimated Glomerular Filt Rate > 60; Glucose Random 228 mg/dL (60-115); Lipase 15 U/L (8-78); Potassium 4.3 mmol/L (3.3-5.1); Sodium 138 mmol/L (135-145); Total Protein 7.7 g/dL (6.5-8.0)
[2025-02-01 14:12] VITALS: BP 143/69; PULSE 60; RESP 14; TEMP 36.8; O2SAT 97
--- NOTE | 2025-02-01 14:14 | PC.NURSE ---
Patient sao tomean speaking. A&O x 3. Patient presents to ED c/o ABD pain rated 10/10. Pain started 3 days ago. ABD soft and tender on RLQ and LLQ +bowel sounds last BM this morning. Patient says she felt like this before when she had kidney stones. Patient c/o of dysuria. Patient hypertensive 143/69 all other VSS. Denies n/v/d, Denies injury, denies sick contact. 20G placed in right forearm. Patient awaiting CT Scan. plan of care on going
[2025-02-01 16:32] VITALS: BP 126/64; PULSE 56; RESP 16; TEMP 36.7; O2SAT 100
[2025-02-01] MEDS: Ketorolac Tromethamine 15 MG/ML VIAL IVPUSH (16:39)
[2025-02-01 17:53] VITALS: BP 124/63; PULSE 57; RESP 16; TEMP 36.7; O2SAT 99
[2025-02-01 18:03] VITALS: BP 124/63; PULSE 57; RESP 16; TEMP 36.7; O2SAT 99
== END 2025-02-01 18:05 | disposition home or self-care (01) ==
PROVIDERS: Physician Assistant; Emergency Provider Emergency Medicine; PCP Internal Medicine
DX: K57.32 Diverticulitis of large intestine without perforation or abscess without bleeding (principal); R10.2 Pelvic and perineal pain; E11.9 Type 2 diabetes mellitus without complications; I10 Essential (primary) hypertension; Z79.84 Long term (current) use of oral hypoglycemic drugs; Z79.899 Other long term (current) drug therapy
CPT/HCPCS: 36415; 74176; 80048; 80076; 81001; 83690; 83735; 85025; 96374; 99284; 99285; J1885

== ENCOUNTER → 2025-02-01 14:59 | Outpatient (BNV) | payer OTHER, SELFPAY | PROVIDERS: Emergency Provider Emergency Medicine; PCP Internal Medicine; Visit Provider Radiology Diagnostic Radiology | DX: K57.30 Diverticulosis of large intestine without perforation or abscess without bleeding (principal) | CPT/HCPCS: 74176 ==

== ENCOUNTER 2025-02-25 07:36 | Outpatient (AMB) | payer OTHER, SELFPAY ==
[2025-02-25 07:40] VITALS: BP 104/62; PULSE 88; O2SAT 97; BMI 24.8
--- NOTE | 2025-02-25 07:40 | A.OFFPC_ITS ---
Vital Signs 02/25/25 07:40 Height 4 ft 11 in Weight 123 lb BMI 24.8 BP 104/62 Blood Pressure Location Lt brachial Position Sitting Pulse 88 Pulse Source Pulse Oximeter Pulse Oximetry (%) 97 Oxygen Delivery Method Room Air Intake Visit Reasons: 02/01 [facility] [place] side ABD pain Early Childhood Assistant Required: Yes Early Childhood Assistant Language: Tajik Allergies iodine (IODINE) Allergy (Unknown, Verified 02/25/25 08:10) ANAPHYLAXIS IVP DYE Allergy (Severe, Uncoded 02/25/25 08:10) anaphylaxis Tobacco use date assessed: 02/25/25 Fall risk assessment: No Falls in past year Last assessed Fall Risk: 02/25/25 Dental Screening Dental Screen Date: 02/25/25 Did you have a dental visit in the last 12 months?: No Did you have a dental problem in the last 6 months where you did not have access to dental care?: No Was dental information given to patient?: Patient has dentist HPI HPI Comments History of Present Illness Details 64 y/o Female patient who presents to hospital for special surgery clinic today for EDF. She was admitted at [facility] [place] on 02/01/25 for an evaluation and treatment of acute uncomplicated diverticulitis of mid descending colon. Abdominal CT A/P showed diverticulitis. She was discharged home the same day on Oral Abx. Pt reports that she never felt better after discharge home. Denies N/V/D or C. Today Patient is in severe pain, abdominal pain rating it at 10/10 - Pt very uncomfortable during the visit - advised to go to ED for further evaluation. [facility] Medical History (Updated 02/25/25 @ 07:51 by Raiza Doyle NP) Acute diverticulitis Smoker Overweight (BMI 25.0-29.9) Major depression, recurrent Insomnia Vitamin D deficiency GERD (gastroesophageal reflux disease) Benign essential hypertension Pure hypercholesterolemia Type 2 diabetes mellitus with hyperglycemia Surgical History Hx of foot surgery Hx of colonoscopy History of carpal tunnel release of both wrists Family History Father Diabetes Hypertension Mother Diabetes Hypertension Social History Housing: Apartment Alcohol intake: never Patient Tobacco Use Status: Current everyday Tobacco user Tobacco use type: Cigarette Cigarettes Per Day: 3 e-Cigarette/Vaping Use: Never Used Second Hand Smoke Exposure: Yes service: No Current occupational status: disabled Cognitive needs: No Hearing needs: No Vision needs: Yes Questionnaire PHQ-9 Over the last 2 weeks, how often have you been bothered by any of the following problems? 1. Little interest or pleasure in doing things: not at all 2. Feeling down, depressed, or hopeless: not at all 3. Trouble falling or staying asleep, or sleeping too much: several days 4. Feeling tired or having little energy: several days 5. Poor appetite or overeating: not at all 6. Feeling bad about yourself - or that you are a failure or have let yourself or your family down: not at all 7. Trouble concentrating on things, such as reading the newspaper or watching television: not at all 8. Moving or speaking so slowly that other people could have noticed. Or the opposite - being so fidgety or restless that you have been moving around a lot more than usual: not at all 9. Thoughts that you would be better off or of hurting yourself in some way: not at all Total score: 2 Depression Screening Interpretation: Positive Depression Screening Done: Yes Source: Developed by Drs. Agustin Ramos, Claribel Cortez, Paul Mello and colleagues, with an educational alyssa from [employer]. Thrive Questionnaire Date Thrive assessed: 02/25/25 I am a: Patient What is your living situation today?: I do not have a steady places to live I am temporarily staying with others Within the past 12 months, did the food you bought not last and you didn't have the money to get more?: Often true Within the past 12 months, did you worry whether your food would run out before you got money to buy more?: Never true Do you have trouble paying for medicines?: No Do you have trouble getting transportation to medical appointments?: Yes Do you have trouble paying your heating and electricity bill?: No Do you have trouble taking care of your child, family member or friend?: No Do you have trouble with day-to-day activities such as bathing, preparing meals, shopping, managing finances, etc.?: Yes Are you currently unemployed and looking for a job?: No Are you interested in more education?: Yes Please select the resources that you would like help with: None Currently or been in a relationship where the following occur: No concerns reported THRIVE Score: 3 AUDIT C Alcohol Use Questionnaire (AUDIT-C) 1. How often do you have a drink containing alcohol?: Never 3. How often do you have six or more drinks on one occasion?: Never Total Score: 0 CALEB-7 AMB Questionnaire CALEB-7 Date CALEB - 7 assessed: 02/25/25 Feeling nervous, anxious, or on edge: 1 = Several days Not being able to stop or control worryin = Several days Worrying too much about different things: 1 = Several days Trouble relaxin = Several days Being so restless that it is hard to sit still: 1 = Several days Becoming easily annoyed or irritable: 0 = Not at all Feeling afraid as if something awful might happen: 1 = Several days Total CALEB-7 score (0-4 normal; 5-9 mild; 10-14 moderate; 15-21 severe): 6 Source: Developed by Drs. Agustin Ramos, Claribel Cortez, Paul Mello and colleagues, with an educational alyssa from [employer]. Review of Systems Const All systems reviewed & are unremarkable except as noted in HPI and below Physical exam (Primary Care) Vital Signs: Last Vital Signs Pulse 88 02/25/25 07:40 BP 104/62 02/25/25 07:40 Pulse Ox 97 02/25/25 07:40 Oxygen Delivery Method Room Air 02/25/25 07:40 BMI result Body Mass Index 24.8 Tobacco/Smoking Status: Tobacco use Status Tobacco use date assessed 02/25/25 02/25/25 07:46 Patient Tobacco Use Status Current everyday Tobacco 02/25/25 07:46 Tobacco use type Cigarette 02/25/25 07:46 e-Cigarette/Vaping Use Never Used 02/25/25 07:46 PHQ-9: PHQ-9 Score PHQ-9: Total score 2 02/25/25 07:53 Depression Screening Interpretation: Positive Thrive Assessment: Date of Thrive Assessment Date Thrive assessed 02/25/25 02/25/25 07:46 Currently or been in a relationship where the following occur: No concerns reported Const General: no acute distress; No comfortable Nutritional Appearance: well nourished Orientation/consciousness: patient oriented x3 Resp Effort & Inspection: normal respiratory effort Auscultation: clear to auscultation bilaterally Cardio Heart sounds: S1 normal heart sound present and S2 normal heart sound present GI Palpation (GI): Soft to palpation, not firm, Tenderness to palpation present (GI) (Generalized Tenderness) with rebound tenderness, Guarding due to palpation present (GI), not rigid and No hepatosplenomegaly present Auscultation: Hypoactive bowel sounds present Neuro General: patient oriented x3, gait normal and moves all extremities Psych Speech and movement: Normal speech and movement present Coding Level of Care Code Est Pt Level 4 (56687) Diagnoses Acute diverticulitis K57.92 Time Spent (min) 20 Assessment & Plan Assessment & Plan (1) Acute diverticulitis: Code(s): K57.92 - Diverticulitis of intestine, part unspecified, without perforation or abscess without bleeding Category: Medical Plan: Advised to go to ED for further evaluation.
== END 2025-02-25 08:01 | disposition home or self-care (01) ==
LOC: HO.HMCH 07:37
PROVIDERS: PCP Internal Medicine; Visit Provider Nurse Practitioner Family
DX: K57.92 Diverticulitis of intestine, part unspecified, without perforation or abscess without bleeding (principal)

== ENCOUNTER → 2025-02-25 07:36 | Outpatient (BNVA) | payer OTHER, SELFPAY | PROVIDERS: PCP Internal Medicine; Visit Provider Nurse Practitioner Family | DX: K21.9 Gastro-esophageal reflux disease without esophagitis (principal); R10.9 Unspecified abdominal pain; Z87.19 Personal history of other diseases of the digestive system | CPT/HCPCS: 96127; 99212 ==

== ENCOUNTER 2025-02-25 08:08 | Emergency (ER) | payer OTHER, SELFPAY ==
--- NOTE | ~2025-02-25 | CT_ITS ---
EXAMINATION: CT ABDOMEN AND PELVIS WITHOUT CONTRAST CLINICAL INFORMATION: Diverticulitis, left lower quadrant pain, not improving COMPARISON: February 01, 2025 DLP: 415 mGY*cm TECHNIQUE: Multidetector volumetric imaging was performed from the superior aspect of the liver through the pubic symphysis. Sagittal and coronal reformatted images were obtained on the technologist's workstation. This CT examination was performed using dose optimization techniques as appropriate, variously including the following: *Automated exposure control *Adjustment of mA and/or kV according to patient size (this includes techniques or standardized protocols for targeted exams where dose is matched to indication/reason for exam; i.e. extremities or head) *Use of iterative reconstruction technique FINDINGS: LUNG BASES: Minimal dependent atelectasis is noted in the right lung base. LIVER, GALLBLADDER, AND BILIARY TREE: A few scattered punctate calcifications in the liver are consistent with chronic granulomatous disease. The gallbladder is unremarkable with no evidence of radiopaque gallstones, gallbladder wall thickening, or obvious pericholecystic inflammatory changes. PANCREAS: Unremarkable. SPLEEN: Punctate calcified granuloma is present in the spleen. ADRENAL GLANDS: Unremarkable. KIDNEYS AND URETERS: Again seen are multiple stones in the right kidney without hydronephrosis. BLADDER: Unremarkable. GASTROINTESTINAL TRACT: Again noted is a sliding hiatal hernia involving the stomach fundus. Numerous pseudodiverticula are present in the colon, most numerous in the descending and sigmoid colon. There is mild inflammatory changes in the mesentery at the junction of distal descending and sigmoid colon, new since the prior. Mild inflammation along the mesentery in the mid descending colon has resolved.. There is mild bowel wall thickening. There is no free air or evidence of a localized perforation. The appendix is partially gas-filled and thin-walled. There is moderate stool and gas in the sigmoid colon and rectum. ABDOMINAL WALL: No significant hernia is appreciated. LYMPH NODES: Normal. VASCULAR: Mild to moderate multifocal calcifications are present in the distal abdominal aorta, common iliac, and femoral arteries. PELVIC VISCERA: Uterus and adnexa are unremarkable. OSSEOUS STRUCTURES: There is a transitional L5 vertebral body that should articulates with the sacrum on the left side. There is moderate to severe degenerative disc disease at L4-5 with sclerosis, osteophytes, vacuum phenomena, and loss of disc height. Enthesophytes are present at the greater trochanters, left greater than right. CT/CT abdomen pelvis wo IV con IMPRESSION: Mild new inflammatory changes at the junction of descending and sigmoid colon consistent with acute diverticulitis. No sign of early abscess formation or localized perforation. Interval resolution of inflammatory changes in the mid descending colon. Changes from chronic granulomatous disease in the liver and spleen. Right kidney stones. Sliding hiatal hernia involving gastric fundus. Fleischner guidelines were followed. Electronically signed by: Alan Hdez MD 02/25/2025 11:03 AM EDT
[2025-02-25 08:10] VITALS: BP 148/72; PULSE 85; RESP 18; TEMP 36.2; O2SAT 98; BMI 24.6
--- NOTE | 2025-02-25 08:59 | ED.ABDPAIN ---
HPI - Abdominal Pain General Chief Complaint: Abdominal Pain Stated Complaint: lower abd pain Time Seen by Provider: 02/25/25 08:21 Source: patient Mode of arrival: ambulatory Limitations: language barrier (Citizen Of [place]-speaking medical consultant utilized) History of Present Illness ED Provider: Hannah Kothari NP HPI narrative: Patient is a 64-year-old female who presents emergency department for evaluation of left lower quad abdominal pain radiating into her back, she was seen by her primary care doctor this morning and advised to come to emergency department for evaluation. Patient was seen in the emergency department 02/01/2025 just over 3 weeks ago, was advised she had diverticulitis given a prescription for Augmentin which she took 3 times daily for 1 week. She states that her symptoms never improved in fact she feels that they have only worsened. She continues to have twice daily bowel movements which is an increase in frequency than her normal baseline. Denies diarrhea, constipation, hematochezia, melena, nausea, vomiting. She admits to having urinary frequency which she states was present previously as well. Denies abnormal vaginal discharge or vaginal bleeding. No fevers or chills, chest pain or shortness of breath Related Data Home Medications ?Medication ?Instructions ?Recorded ?Confirmed fluoxetine 20 mg capsule 20 mg PO DAILY 06/15/20 11/25/23 omeprazole 20 mg capsule,delayed 20 mg PO DAILY 06/15/20 11/25/23 release temazepam 30 mg capsule (Restoril) 30 mg PO BEDTIME PRN 06/15/20 11/25/23 buspirone 5 mg tablet 5 mg PO BID 02/25/23 11/25/23 quetiapine 50 mg tablet mg PO 02/25/23 11/25/23 Previous Rx's ?Medication ?Instructions ?Recorded methocarbamol 750 mg tablet 750 mg PO Q8H PRN for muscle spasm 12/12/22 #90 tabs famotidine 40 mg tablet 40 mg PO DAILY #90 tabs 01/24/23 metformin 1,000 mg tablet 1,000 mg PO BID 90 days #180 tabs 01/24/23 acetaminophen 650 mg 1,300 mg (2 x 650 mg) PO Q12H PRN 01/30/23 tablet,extended release (Arthritis for pain 30 days #120 tabs Pain Relief (acetaminophen) ER) cholecalciferol (vitamin D3) 50 50 mcg PO DAILY 90 days #90 caps 03/06/23 mcg (2,000 unit) capsule blood sugar diagnostic (FreeStyle #100 ea 04/15/23 Lite Strips) blood-glucose meter (FreeStyle #1 ea 04/15/23 Lite Meter kit) lancets 28 gauge (FreeStyle #100 ea 04/15/23 Lancets) gabapentin 300 mg capsule 300 mg PO TID 30 days #90 caps 05/13/23 dulaglutide 3 mg/0.5 mL 3 mg (0.5 mL) subcut QWEEK #2 mL 05/15/23 subcutaneous pen injector (Trulicity) bupropion HCl 150 mg 24 hr tablet, 150 mg PO QAM 30 days #30 tabs 08/22/23 extended release ketoconazole 2 % shampoo 1 appl topical 2XW #120 mL 11/18/23 atorvastatin 40 mg tablet 40 mg PO DAILY #90 tabs 12/17/23 blood-glucose sensor (FreeStyle #2 ea 12/17/23 Jessica 3 Sensor device) blood-glucose,teasel setter,cont #1 ea 12/17/23 (FreeStyle Jessica 3 [place]) insulin glargine 100 unit/mL (3 15 unit (0.15 mL) subcut DAILY #15 12/17/23 mL) subcutaneous pen (Lantus mL Solostar U-100 Insulin) insulin lispro 100 unit/mL 5 unit (0.05 mL) subcut TID #15 mL 12/17/23 subcutaneous pen (Humalog KwikPen (U-100) Insulin) lisinopril 2.5 mg tablet 2.5 mg PO DAILY #90 tabs 12/17/23 pen needle, diabetic 32 gauge x #100 ea 12/17/23/16 (Comfort EZ Pen [place]) glipizide 10 mg tablet 10 mg PO DAILY #90 tabs 01/02/24 ciprofloxacin HCl 500 mg tablet 500 mg PO Q12H #20 tabs 02/25/25 metronidazole 500 mg tablet 500 mg PO BID #20 tabs 02/25/25 oxycodone 5 mg tablet 5 mg PO Q6H PRN pain #10 tabs 02/25/25 Allergies Allergy/AdvReac Type Severity Reaction Status Date / Time iodine (IODINE) Allergy Unknown ANAPHYLAXIS Verified 02/25/25 08:10 IVP DYE Allergy Severe anaphylaxis Uncoded 02/25/25 08:10 Review of Systems Review of Systems Yes all other systems are reviewed and are negative [facility] Past Medical History Attestation statement: The following information was validated with the patient. Source: old records reviewed Medical History Acute diverticulitis Smoker Overweight (BMI 25.0-29.9) Major depression, recurrent Insomnia Vitamin D deficiency GERD (gastroesophageal reflux disease) Benign essential hypertension Pure hypercholesterolemia Type 2 diabetes mellitus with hyperglycemia Surgical History Hx of foot surgery Hx of colonoscopy History of carpal tunnel release of both wrists Family History Family History Father Diabetes Hypertension Mother Diabetes Hypertension Social History Social History Housing: Apartment Alcohol intake: never Patient Tobacco Use Status: Current everyday Tobacco user Tobacco use type: Cigarette Cigarettes Per Day: 3 e-Cigarette/Vaping Use: Never Used Second Hand Smoke Exposure: Yes Advance Directives: No Advance Directives Information Provided: Yes service: No Current occupational status: disabled Cognitive needs: No Hearing needs: No Vision needs: Yes Physical Exam ED Vital Signs: Vital Signs - 24 hr 02/25/25 08:10 02/25/25 09:55 02/25/25 09:56 Temperature 97.1 F 98.0 F Pulse Rate 85 66 Respiratory Rate 18 22 H 22 H Blood Pressure 148/72 H 121/48 L Pulse Oximetry 98 99 Oxygen Delivery Method Room Air Room Air 02/25/25 11:51 02/25/25 12:22 Temperature 97.5 F Pulse Rate 67 Respiratory Rate 20 16 Blood Pressure 120/62 Pulse Oximetry 98 Oxygen Delivery Method Room Air BMI result Body Mass Index 24.6 Appearance: Alert.?Oriented to person, place and time. No acute distress.?Normal affect. Eyes: Pupils equal, round and reactive to light.? ENT: Pharynx normal.?? Neck: Normal inspection.? Neck supple.?? CVS: Heart sounds normal. Normal heart rate and rhythm.? Pulses normal.?? Respiratory: No respiratory distress.? Lung sounds clear to auscultation bilaterally?? Abdomen: Soft left lower quadrant tenderness upon palpation. No rigidity or guarding. No CVA tenderness. Normoactive bowel sounds. ?? Skin: Skin warm and dry.? Normal skin color.? ?? Extremities: No lower extremity edema.? Neuro: Moves all extremities spontaneously. Sensation intact bilaterally. Ambulates with normal steady gait. Course Reevaluation(s) Reevaluation #1: CBC reveals leukocytosis of 15,000 with left shift, no anemia or thrombocytopenia. No significant electrolyte derangement, no PEDRO. Glucose of 365, had not yet taken insulin, LFTs unremarkable. Urinalysis without evidence of infection or microscopic hematuria. Repeat CT of the abdomen and pelvis reveals mild inflammatory changes of the junction of the descending and sigmoid colon consistent with acute diverticulitis no signs of abscess or perforation, interval resolution of previously identified inflammatory changes of the mid descending colon. Splint, given this is a new indications the diverticulitis mild in appearance without evidence of complication, I plan to change her antibiotic regimen to Cipro and Flagyl. She remains in pain in the emergency department, despite receiving 2 doses of morphine, will trial oral oxycodone and hopes that she can be discharged home. Medical Decision Making Medical Decision Making MDM Narrative: Patient is a 64-year-old female past medical history of type 2 diabetes, hypertension, GERD, depression, nephrolithiasis who presents emergency department for evaluation of persistent left lower quadrant abdominal pain as per HPI, just over 3 weeks ago she was diagnosed with diverticulitis was sent home with Augmentin t.i.d. for 7 days, she completed the course but had no improvement in her symptoms. Continues to have twice daily bowel movements which is atypical from her baseline but denies it to be diarrhea, no associated nausea or vomiting. Plan to obtain repeat abdominal and pelvis CT for evaluation and potential complication, she does have exquisite left lower quadrant tenderness on examination, no CVA tenderness. Is experiencing urinary frequency which has been ongoing since the start of this pain as well, prior CT without evidence of nephrolithiasis on the left. CT did reveal acute noncomplicated diverticulitis of the mid descending colon an extensive diverticulosis of the descending and sigmoid colon. Will obtain CBC to evaluate for leukocytosis/ anemia, CMP and lipase to evaluate for abnormal electrolytes /abnormal renal function/ abnormal hepatic/biliary function, and Urinalysis. She denies pelvic pain, abnormal vaginal discharge or bleeding, denies concern for sexually transmitted infection, lower suspicion for PID, ovarian torsion, ruptured ovarian cyst. Differential Diagnosis Differential Diagnoses: The differential diagnosis associated with the presentation includes (See narrative above) Admission/Observation Consideration of admission/observation: Escalation of care including admission/observation considered Lab Data MDM Lab Attestation statement: I reviewed the patient's lab results. 02/25/25 09:43 02/25/25 09:43 Labs: Lab Results 02/25/25 02/25/25 Range/Units 09:43 11:58 WBC 15.0 H (4.8-10.8) X10*3/uL RBC 4.33 (4.20-5.50) X10*6/uL Hgb 13.8 (12.0-16.0) g/dl Hct 40.6 (37.0-47.0) % MCV 93.8 (80.0-98.0) fL MCH 31.9 (27.0-33.0) pg MCHC 34.0 (31.0-35.0) g/dl RDW 13.0 (11.0-16.0) % Plt Count 285 (160-400) X10*3/uL MPV 10.0 (9.4-12.3) fL Immature Gran % (Auto) 0.4 (0.0-0.4) % Neut % (Auto) 73.9 H (45-73) % Lymph % (Auto) 17.5 L (20-40) % [place] % (Auto) 6.8 (2-11) % Eos % (Auto) 0.7 (0-4) % Baso % (Auto) 0.7 (0-2) % Lymph # (Auto) 2.6 (1.2-4.9) X10*3/uL [place] # (Auto) 1.0 (0.1-1.2) X10*3/uL Eos # (Auto) 0.1 (0.0-0.4) X10*3/uL Baso # (Auto) 0.1 (0.0-0.2) X10*3/uL Abs Immat Gran (auto) 0.06 H (0.00-0.03) X10*3/uL Absolute Neuts (auto) 11.1 H (2.0-8.3) x10*3/uL Absolute Nucleated RBC 0.000 (0.0-0.012) X10*3/uL Nucleated RBC % (auto) 0.0 (0.0-0.2) /100WBC Sodium 134 L (135-145) mmol/L Potassium 4.9 (3.3-5.1) mmol/L Chloride 101 (96-108) mmol/L Carbon Dioxide 29 (22-29) mmol/L Anion Gap 9 L (12-20) BUN 10 (9-16) mg/dL Creatinine 0.82 (0.5-1.4) mg/dL Estim Creat Clear Calc 52.4 Estimated GFR > 60 POC Glucose 255 H (60-115) mg/dL Random Glucose 365 H* (60-115) mg/dL Calcium 10.0 (8.4-10.2) mg/dL Total Bilirubin 0.6 (0.0-1.0) mg/dL AST 15 (5-31) U/L ALT 21 (0-31) U/L Alkaline Phosphatase 164 H (39-117) U/L C-Reactive Protein 4.37 H (< or = 0.50) mg/dL Total Protein 7.6 (6.5-8.0) g/dL Albumin 4.5 (3.5-5.0) g/dL Urine Color Yellow Urine Appearance Clear Urine pH 6.0 (5.0-9.0) Ur Specific [place] 1.015 (1.005-1.025) Urine Protein Negative (Neg-Trace) mg/dL Urine Glucose (UA) >=1000 H (Negative) mg/dL Urine Ketones Negative (Negative) mg/dL Urine Blood Negative (Negative) Urine Nitrite Negative (Negative) Ur Leukocyte Esterase Negative (Negative) Urine RBC 0-2 (0-2) /HPF Urine WBC 0-5 (0-5) /HPF Ur Squamous Epith Cells 0-2 (0-2) /HPF Urine Bacteria None Seen (None Seen) Hyaline Casts 0-2 (0-2) /LPF Radiology Impression Discussion of test interpretation with radiology: I have reviewed the radiologist's reading. Radiologist Impression: CT/CT abdomen pelvis wo IV con IMPRESSION: Mild new inflammatory changes at the junction of descending and sigmoid colon consistent with acute diverticulitis. No sign of early abscess formation or localized perforation. Interval resolution of inflammatory changes in the mid descending colon. Changes from chronic granulomatous disease in the liver and spleen. Right kidney stones. Sliding hiatal hernia involving gastric fundus. Fleischner guidelines were followed. External Record Review External record reviewed: Outpatient record and Other I attest that I have reviewed patients MassPAT, and at the time prescribing the patient a controlled substance is appropriate based off of patients diagnosis and treatment plan. Medications Administered Discontinued Medications Generic Name Dose Route Start Last Admin Trade Name Freq PRN Reason Stop Dose Admin Sodium Chloride 1,000 mls @ 999 mls/hr 02/25/25 09:45 02/25/25 11:10 Ns IV 02/25/25 10:45 Infused .Q1H1M ADRIANO Infusion Morphine Sulfate 2 mg 02/25/25 09:31 02/25/25 09:55 Morphine Sulfate 2 Mg/Ml Cartridge IVPUSH 02/25/25 09:32 2 mg ONCE ONE Administration Protocol Morphine Sulfate 2 mg 02/25/25 11:37 02/25/25 11:51 Morphine Sulfate 2 Mg/Ml Cartridge IVPUSH 02/25/25 11:38 2 mg ONCE ONE Administration Protocol Ondansetron HCl 4 mg 02/25/25 09:31 02/25/25 09:55 Ondansetron Hcl 4 Mg/2 Ml Vial IVPUSH 02/25/25 09:32 4 mg ONCE ONE Administration Oxycodone HCl 5 mg 02/25/25 11:52 02/25/25 12:14 Oxycodone Hcl Immed Release 5 Mg Tablet PO 02/25/25 11:53 5 mg ONCE ONE Administration Discharge Plan Discharge Clinical Impression: Diverticulitis Patient Disposition: Home, Self-Care Instructions: Diverticulitis (ED) Additional Instructions: Workup today shows that you have diverticulitis in a different location than your previous episode just over 3 weeks ago. The previous area of diverticulitis is improving. I am changing the course of antibiotics last time he received Augmentin, this time you will receive a combination of ciprofloxacin as well as metronidazole. Additionally, I am sending a prescription for oxycodone to your pharmacy to help manage the pain. This is a narcotic medication. It may make you drowsy. You should not drive, drink alcohol, or work while taking this medication. Please return to emergency department any new or worsening symptoms or concerns which include but is not limited to severe worsening pain, intractable vomiting, persistent diarrhea, inability to tolerate oral intake, fevers, chills. Follow-up with primary care doctor. Prescriptions: New oxycodone 5 mg tablet 5 mg PO Q6H PRN (Reason: pain) Qty: 10 0RF Rx Instructions: Partial Fill upon patient request. ciprofloxacin HCl 500 mg tablet 500 mg PO Q12H Qty: 20 0RF metronidazole 500 mg tablet 500 mg PO BID Qty: 20 0RF No Action methocarbamol 750 mg tablet 750 mg PO Q8H PRN (Reason: for muscle spasm) Qty: 90 0RF metformin 1,000 mg tablet 1,000 mg PO BID 90 Days Qty: 180 3RF famotidine 40 mg tablet 40 mg PO DAILY Qty: 90 3RF acetaminophen [Arthritis Pain Relief (acetam)] 650 mg tablet extended release 1,300 mg PO Q12H PRN (Reason: for pain) 30 Days Qty: 120 6RF cholecalciferol (vitamin D3) 50 mcg (2,000 unit) capsule 50 mcg PO DAILY 90 Days Qty: 90 3RF (DME) blood-glucose meter [FreeStyle Lite Meter] Kit See Rx Instructions .Route Qty: 1 0RF Rx Instructions: As directed test 4 times a day (DME) FreeStyle Lite Strips Strip See Rx Instructions .Route Qty: 100 5RF Rx Instructions: As directed test 4 times a day (DME) lancets [FreeStyle Lancets] 28 gauge misc See Rx Instructions .Route Qty: 100 5RF Rx Instructions: As directed test 4 times a day gabapentin 300 mg capsule 300 mg PO TID 30 Days Qty: 90 5RF bupropion HCl 150 mg tablet extended release 24 hr 150 mg PO QAM 30 Days Qty: 30 1RF Rx Instructions: Have not been seen since November 2022 and needs to schedule follow up appt SUSAN lisinopril 2.5 mg tablet 2.5 mg PO DAILY Qty: 90 0RF atorvastatin 40 mg tablet 40 mg PO DAILY Qty: 90 0RF Rx Instructions: Have not been seen since November 2022 and needs to schedule follow up appt SUSAN glipizide 10 mg tablet 10 mg PO DAILY Qty: 90 0RF ketoconazole 2 % shampoo 1 appl topical 2XW Qty: 120 0RF Rx Instructions: use as instructed temazepam [Restoril] 30 mg capsule 30 mg PO BEDTIME PRN fluoxetine 20 mg capsule 20 mg PO DAILY omeprazole 20 mg capsule,delayed release(DR/EC) 20 mg PO DAILY quetiapine 50 mg tablet PO buspirone 5 mg tablet 5 mg PO BID Trulicity 3 mg/0.5 mL pen injector 3 mg subcut QWEEK Qty: 2 5RF insulin glargine [Lantus Solostar U-100 Insulin] 100 unit/mL (3 mL) insulin pen 15 unit subcut DAILY Qty: 15 4RF insulin lispro [Humalog KwikPen Insulin] 100 unit/mL insulin pen 5 unit subcut TID Qty: 15 4RF (DME) pen needle, diabetic [Comfort EZ Pen [place]] 32 gauge x 5/16 needle See Rx Instructions .Route Qty: 100 4RF Rx Instructions: As directed injects 4X/day (DME) FreeStyle Jessica 3 Sensor Device See Rx Instructions .Route Qty: 2 4RF Rx Instructions: As directed change every 14 days (DME) FreeStyle Jessica 3 [place] Misc See Rx Instructions .Route Qty: 1 0RF Rx Instructions: As directed Print Language: Citizen Of [place]
[2025-02-25 09:49] LABS: MANUAL DIFF FLAG NO
[2025-02-25 09:51] LABS: Appearance Urine Clear; Basophils Absolute Auto 0.1 X10*3/uL (0.0-0.2); Basophils Percent Auto 0.7 % (0-2); Color Urine Yellow; Eosinophils Absolute Auto 0.1 X10*3/uL (0.0-0.4); Eosinophils Percent Auto 0.7 % (0-4); Glucose Urine UA >=1000 mg/dL (Negative); Hematocrit 40.6 % (37.0-47.0); Hemoglobin 13.8 g/dl (12.0-16.0); Imm Gran Abs Auto 0.06 X10*3/uL (0.00-0.03); Imm Gran Pct Auto 0.4 % (0.0-0.4); Leukocyte Esterase Urine Negative (Negative); Lymphocytes Absolute Auto 2.6 X10*3/uL (1.2-4.9); Lymphocytes Percent Auto 17.5 % (20-40); Mean Corpuscular Hemoglobin 31.9 pg (27.0-33.0); Mean Corpuscular Volume 93.8 fL (80.0-98.0); Monocytes Percent Auto 6.8 % (2-11); Neutrophils Absolute Auto 11.1 x10*3/uL (2.0-8.3); Neutrophils Percent Auto 73.9 % (45-73); Nitrite Urine Negative (Negative); Platelet Count 285 X10*3/uL (160-400); Red Blood Count 4.33 X10*6/uL (4.20-5.50); Specific Gravity - Urine 1.015 (1.005-1.025); UMIC TRIGGER UACC YES; Urine Blood Negative (Negative); Urine Ketones Negative (Negative); Urine Protein Negative (Neg-Trace)
[2025-02-25 09:55] VITALS: RESP 22
[2025-02-25] MEDS: ondansetron HCL 4 MG/2 ML VIAL IVPUSH (09:55)
[2025-02-25] MEDS: Morphine Sulfate 2 MG/ML CARTRIDGE IVPUSH ×2 (09:55→11:51)
[2025-02-25 09:56] VITALS: BP 121/48; PULSE 66; RESP 22; TEMP 36.7; O2SAT 99
[2025-02-25 09:56] LABS: Bacteria Urine None Seen (None Seen); Hyaline Casts Urine 0-2 /LPF (0-2); RBC Urine 0-2 /HPF (0-2); Squamous Epithelial Cell Urine 0-2 /HPF (0-2); WBC Urine 0-5 /HPF (0-5)
[2025-02-25] MEDS: 0.9 % Sodium Chloride 1,000 ML 999 ML IV (09:56)
[2025-02-25 10:16] LABS: Alanine Aminotransferase 21 U/L (0-31); Albumin Level 4.5 g/dL (3.5-5.0); Alkaline Phosphatase 164 U/L (39-117); Anion Gap 9 (12-20); Aspartate Amino Transferase 15 U/L (5-31); Bilirubin Total 0.6 mg/dL (0.0-1.0); Blood Urea Nitrogen 10 mg/dL (9-16); Carbon Dioxide 29 mmol/L (22-29); Chloride 101 mmol/L (96-108); Creatinine Clr Calc Pharmacy 52.4; Estimated Glomerular Filt Rate > 60; Glucose Random 365 mg/dL (60-115); Potassium 4.9 mmol/L (3.3-5.1); Sodium 134 mmol/L (135-145); Total Protein 7.6 g/dL (6.5-8.0)
[2025-02-25 11:51] VITALS: RESP 20
[2025-02-25 12:02] LABS: Glucose, Whole Blood 255 mg/dL (60-115)
[2025-02-25] MEDS: oxyCODONE HCl Immed Release 5 MG TABLET PO (12:14)
[2025-02-25 12:17] LABS: C Reactive Protein 4.37 mg/dL (< or = 0.50)
[2025-02-25 12:22] VITALS: BP 120/62; PULSE 67; RESP 16; TEMP 36.4; O2SAT 98
[2025-02-25 14:18] VITALS: BP 120/62; PULSE 67; RESP 16; TEMP 36.4; O2SAT 98
== END 2025-02-25 14:19 | disposition home or self-care (01) ==
PROVIDERS: Emergency Medicine; Nurse Practitioner Family; Emergency Provider Emergency Medicine; PCP Internal Medicine
DX: K57.32 Diverticulitis of large intestine without perforation or abscess without bleeding (principal); R10.32 Left lower quadrant pain; M54.50 Low back pain, unspecified; R35.0 Frequency of micturition; R11.0 Nausea; E11.9 Type 2 diabetes mellitus without complications; I10 Essential (primary) hypertension; F17.210 Nicotine dependence, cigarettes, uncomplicated; Z79.899 Other long term (current) drug therapy; Z79.4 Long term (current) use of insulin
CPT/HCPCS: 36415; 74176; 80053; 81001; 82947; 85025; 86140; 96361; 96374; 96375; 96376; 99284; 99285; J2270; J2405

== ENCOUNTER → 2025-02-25 09:48 | Outpatient (BNV) | payer OTHER, SELFPAY | PROVIDERS: Emergency Provider Emergency Medicine; PCP Internal Medicine; Visit Provider Radiology Diagnostic Radiology | DX: K57.30 Diverticulosis of large intestine without perforation or abscess without bleeding (principal) | CPT/HCPCS: 74176 ==

== ENCOUNTER 2025-05-18 13:29 | Outpatient (AMB) | payer OTHER, SELFPAY ==
[2025-05-18 13:32] VITALS: BP 130/74; PULSE 81; O2SAT 98; BMI 24.7
--- NOTE | 2025-05-18 13:32 | MHC.PC.OV ---
Vital Signs 05/18/25 13:32 Height 4 ft 11 in Weight 122 lb 4 oz BMI 24.7 BP 130/74 Blood Pressure Location Lt brachial Position Sitting Pulse 81 Pulse Source Pulse Oximeter Pulse Oximetry (%) 98 Oxygen Delivery Method Room Air Intake Visit Reasons: dm Booster Station Operator Required: No Accompanied by: Self / Same As Patient Allergies iodine (IODINE) Allergy (Unknown, Verified 05/18/25 14:08) ANAPHYLAXIS IVP DYE Allergy (Severe, Uncoded 05/18/25 14:08) anaphylaxis Medication List - Last Reconciled 05/18/25 by Kana Roman MD acetaminophen ER (Arthritis Pain Relief (acetaminophen) ER) 1,300 mg (2 x 650 mg) PO Q12H PRN 30 days atorvastatin 40 mg PO DAILY blood sugar diagnostic (FreeStyle Lite Strips) As directed test 4 times a day blood-glucose meter (MirantisStyle Lite Meter kit) As directed test 4 times a day blood-glucose sensor (MirantisStyle Jessica 3 Sensor device) As directed change every 14 days blood-glucose,school inspector,cont (FreeStyle Jessica 3 [place]) As directed bupropion HCl XL 150 mg PO QAM 30 days buspirone 5 mg PO BID cholecalciferol (vitamin D3) 50 mcg PO DAILY 90 days dulaglutide (Trulicity) 3 mg (0.5 mL) subcut QWEEK famotidine 40 mg PO DAILY fluoxetine 20 mg PO DAILY gabapentin 300 mg PO TID 30 days glipizide 10 mg PO DAILY insulin glargine (Lantus Solostar U-100 Insulin) 15 units (0.15 mL) subcut DAILY insulin lispro (Humalog KwikPen (U-100) Insulin) 5 units (0.05 mL) subcut TID ketoconazole 2% 1 appl topical 2XW lancets (FreeStyle Lancets) As directed test 4 times a day lisinopril 2.5 mg PO DAILY metformin 1,000 mg PO BID 90 days methocarbamol 750 mg PO Q8H PRN omeprazole 20 mg PO DAILY pen needle, diabetic (Comfort EZ Pen [place]) As directed injects 4X/day quetiapine 50 mg PO BEDTIME temazepam (Restoril) 30 mg PO BEDTIME PRN Tobacco use date assessed: 05/18/25 Fall risk assessment: No Falls in past year Last assessed Fall Risk: 05/18/25 Dental Screening Dental Screen Date: 05/18/25 Did you have a dental visit in the last 12 months?: No Did you have a dental problem in the last 6 months where you did not have access to dental care?: No Was dental information given to patient?: No HPI dm HPI Details Patient comes in today for her follow up visit - was last seen by me on 11/18/23 States that she currently feels okay She was sent back to the ER in February 2025 from the office for ongoing diverticulitis - she was still experiencing increased LLQ abdominal pain at the time when she presented to the office for follow up of her recent brief hospitalization for the same issue Patient at the time states that she never felt any better after she was discharged from the hospital following a brief stay for Tx She was started then on oral Cipro and Flagyl - patient states that her GI symptoms gradually improved and have not recurred since She admits that over the past year (has not been in for her routine follow up >16 months), she has only been taking her Lantus, Humalog and Glipizide and was not really very compliant with both her Rx and her diet She was also being seen by endocrinology for her diabetes management but she has not been back to see them since January 2024 Patient currently denies any headaches or dizziness Denies any chest pains, no increased SOB No nausea/vomiting, no abdominal pain No change in bowel habits noted Needs several of her Rx refilled She also has a large cyst on her middle to lower back that has been present for a while now and would like to see someone about having this removed - states that the cyst does not itch or hurt She has no follow up labs done recently other than her labs back in February 2025 when she was sent over to the ER She is also requesting for a referral to eye doctors here locally as she has a hard time keeping her appts up in [place], where she is normally scheduled at for her eye exams [facility] Medical History (Updated 05/18/25 @ 15:10 by Kana Roman MD) Anxiety Acute diverticulitis Smoker Overweight (BMI 25.0-29.9) Major depression, recurrent Insomnia Vitamin D deficiency GERD (gastroesophageal reflux disease) Benign essential hypertension Pure hypercholesterolemia Type 2 diabetes mellitus with hyperglycemia Surgical History Hx of foot surgery Hx of colonoscopy History of carpal tunnel release of both wrists Family History Father Diabetes Hypertension Mother Diabetes Hypertension Social History Housing: Apartment Alcohol intake: never Patient Tobacco Use Status: Current everyday Tobacco user Tobacco use type: Cigarette Cigarettes Per Day: 3 e-Cigarette/Vaping Use: Never Used Second Hand Smoke Exposure: Yes service: No Current occupational status: disabled Cognitive needs: No Hearing needs: No Vision needs: Yes Questionnaire PHQ-9 Over the last 2 weeks, how often have you been bothered by any of the following problems? 1. Little interest or pleasure in doing things: not at all 2. Feeling down, depressed, or hopeless: not at all 3. Trouble falling or staying asleep, or sleeping too much: several days 4. Feeling tired or having little energy: several days 5. Poor appetite or overeating: not at all 6. Feeling bad about yourself - or that you are a failure or have let yourself or your family down: not at all 7. Trouble concentrating on things, such as reading the newspaper or watching television: not at all 8. Moving or speaking so slowly that other people could have noticed. Or the opposite - being so fidgety or restless that you have been moving around a lot more than usual: not at all 9. Thoughts that you would be better off or of hurting yourself in some way: not at all Total score: 2 Depression Screening Interpretation: Negative (is on Rx) Depression Screening Done: Yes 24727 - PHQ-9 Billing: Yes Source: Developed by Drs. Agustin Ramos, Claribel Cortez, Paul Mello and colleagues, with an educational alyssa from [employer]. Thrive Questionnaire Date Thrive assessed: 05/18/25 I am a: Patient What is your living situation today?: I do not have a steady places to live I am temporarily staying with others Within the past 12 months, did the food you bought not last and you didn't have the money to get more?: Often true Within the past 12 months, did you worry whether your food would run out before you got money to buy more?: Never true Do you have trouble paying for medicines?: No Do you have trouble getting transportation to medical appointments?: Yes Do you have trouble paying your heating and electricity bill?: No Do you have trouble taking care of your child, family member or friend?: No Do you have trouble with day-to-day activities such as bathing, preparing meals, shopping, managing finances, etc.?: Yes Are you currently unemployed and looking for a job?: No Are you interested in more education?: Yes Please select the resources that you would like help with: None Currently or been in a relationship where the following occur: No concerns reported THRIVE Score: 3 AUDIT C Alcohol Use Questionnaire (AUDIT-C) 1. How often do you have a drink containing alcohol?: Never 3. How often do you have six or more drinks on one occasion?: Never Total Score: 0 Score Reviewed/Action Taken: Yes CALEB-7 AMB Questionnaire CALEB-7 Date CALEB - 7 assessed: 05/18/25 Feeling nervous, anxious, or on edge: 1 = Several days Not being able to stop or control worryin = Several days Worrying too much about different things: 1 = Several days Trouble relaxin = Several days Being so restless that it is hard to sit still: 1 = Several days Becoming easily annoyed or irritable: 0 = Not at all Feeling afraid as if something awful might happen: 1 = Several days Total CALEB-7 score (0-4 normal; 5-9 mild; 10-14 moderate; 15-21 severe): 6 Source: Developed by Drs. Agustin Ramos, Claribel Cortez, Paul Mello and colleagues, with an educational alyssa from [employer]. Review of Systems Const Denies chills, Denies fatigue, Denies fever(s) and Denies headache(s) ENT Denies dysphagia, Denies dizziness, Denies otalgia, Denies headache(s), Denies neck pain, Denies odynophagia and Denies sore throat Card Denies chest pain, Denies palpitations and Denies dyspnea Resp Denies chest congestion, Denies cough and Denies dyspnea GI Denies abdominal pain, Denies constipation, Denies dysphagia, Denies heartburn, Denies diarrhea, Denies nausea, Denies odynophagia and Denies vomiting Denies difficulty voiding, Denies nocturia, Denies dysuria and Denies urinary urgency Musc Denies back pain and Denies neck pain Skin/Breast Details: (+) large lipoma on the right mid-thoracic area of the back Denies rash Neuro Denies dizziness and Denies headache(s) Endo Denies fatigue and Denies palpitations Physical exam (Primary Care) Vital Signs: Last Vital Signs Pulse 81 05/18/25 13:32 BP 130/74 05/18/25 13:32 Pulse Ox 98 05/18/25 13:32 Oxygen Delivery Method Room Air 05/18/25 13:32 BMI result Body Mass Index 24.7 Tobacco/Smoking Status: Tobacco use Status Tobacco use date assessed 05/18/25 05/18/25 13:37 Patient Tobacco Use Status Current everyday Tobacco 05/18/25 13:37 Tobacco use type Cigarette 05/18/25 13:37 e-Cigarette/Vaping Use Never Used 05/18/25 13:37 PHQ-9: PHQ-9 Score PHQ-9: Total score 2 05/18/25 13:54 Depression Screening Interpretation: Negative (is on Rx) Thrive Assessment: Date of Thrive Assessment Date Thrive assessed 05/18/25 05/18/25 13:37 Currently or been in a relationship where the following occur: No concerns reported Const General: no acute distress and alert HENMT Ears: TM's normal bilaterally and EAC's normal Throat: Yes posterior oropharynx normal and Yes tonsils normal (no TP congestion) Neck Neck: Yes supple and No lymphadenopathy Resp Auscultation: clear to auscultation bilaterally, no rales and no wheezes Cardio Rate: regular rate Rhythm: regular rhythm Heart sounds: no murmurs GI Palpation (GI): Soft to palpation and nontender Auscultation: normal bowel sounds General: Yes no CVA tenderness Back/Spine/Pelvis Other: (+) large golf ball-sized, non-tender nodular lesion on the mid-thoracic area just to the right of the midline Back: no CVA tenderness Thoracic/Lumbar Spine: No lumbar spinal tenderness Skin Rashes: no rashes Extrem General: Yes no clubbing, cyanosis or edema Results AMB Hemoglobin A1c AMB Hemoglobin A1c 14 % Last Edit by ANSLEY Stokes on 05/18/25 13:55 Results Reviewed Results Reviewed: Laboratory Last Values Hgb A1c (Clinic) 14 % (4.0-6.0) H 05/18/25 13:37 Coding Level of Care Code Est Pt Level 4 (23592) Diagnoses Type 2 diabetes mellitus with hyperglycemia, without long-term current use of insulin E11.65 Diabetes mellitus half-way insulin use: without half-way use Pure hypercholesterolemia E78.00 Benign essential hypertension I10 Gastroesophageal reflux disease without esophagitis K21.9 Esophagitis presence: without esophagitis Low back pain radiating to left lower extremity M54.50; M79.605 Vitamin D deficiency E55.9 Lipoma of back D17.1 Insomnia, unspecified type G47.00 Insomnia type: unspecified Anxiety F41.9 Episode of recurrent major depressive disorder, unspecified depression episode severity F33.9 Active/Remission status: currently active Major depression episode severity: unspecified Overweight (BMI 25.0-29.9) E66.3 Additional Codes PHQ-9 - 95270 - PHQ-9 Billing: Yes ([id number]) Assessment & Plan Assessment & Plan (1) Type 2 diabetes mellitus with hyperglycemia: Code(s): E11.65 - Type 2 diabetes mellitus with hyperglycemia Category: Medical Qualifiers: Diabetes mellitus half-way insulin use: without intermediate frame tender use Qualified Code(s): E11.65 - Type 2 diabetes mellitus with hyperglycemia Plan: Her in-office HgbA1c today is at 14% - goal is at least <7.0% Reinforced diabetic diet Patient admits that she was not really taking any of her meds over the past year or so except for her Lantus, Humalog and Glipizide Have advised her to go back on her previous medications, including Lantus 15 units QD, Humalog Kwikpen 5 units TID, Trulicity 3 mg SQ once a week, Metformin 1000 mg BID and Glipizde 10 mg QD She was being seen by endocrinology for diabetes management but she was lost to follow up after January 2024 Have advised patient that if she cannot get her HgbA1c down significantly over the next few months, then I will refer her back to endocrinology again Per request, will refer her to ophthalmology locally for her diabetic eye exam - patient states that they normally schedule her appts up in [place] and she has transportation issues and has a hard time keeping her appts there (2) Pure hypercholesterolemia: Code(s): E78.00 - Pure hypercholesterolemia, unspecified Category: Medical Plan: Reinforced low cholesterol diet Continue Atorvastatin 40 mg QD - Rx refilled Will recheck her labs and fasting lipids in 3 months for follow up (3) Benign essential hypertension: Code(s): I10 - Essential (primary) hypertension Category: Medical Plan: Reinforced low sodium diet - goal is systolic BP of 120 mm or less Continue Lisinopril 2.5 mg QD (4) GERD (gastroesophageal reflux disease): Code(s): K21.9 - Gastro-esophageal reflux disease without esophagitis Category: Medical Qualifiers: Esophagitis presence: without esophagitis Qualified Code(s): K21.9 - Gastro-esophageal reflux disease without esophagitis Plan: Dietary restrictions reinforced Continue Omeprazole 20 mg QD (5) Low back pain radiating to left lower extremity: Code(s): M54.50 - Low back pain, unspecified; M79.605 - Pain in left leg Category: Medical Plan: Reinforced activity and weight-lifting restrictions Lumbar spine x-rays done a couple of years ago revealed (+) degenerative changes in the lumbar spine Continue Gabapentin 300 mg TID She is advised that she can go back and follow up with pain management when needed (6) Vitamin D deficiency: Code(s): E55.9 - Vitamin D deficiency, unspecified Category: Medical Plan: Continue Vitamin D3 2000 units QD (7) Lipoma of back: Code(s): D17.1 - Benign lipomatous neoplasm of skin and subcutaneous tissue of trunk Category: Medical Plan: Will refer her to surgery for consideration for excision of her lipoma (8) Insomnia: Code(s): G47.00 - Insomnia, unspecified Category: Medical Qualifiers: Insomnia type: unspecified Qualified Code(s): G47.00 - Insomnia, unspecified Plan: Sleep hygiene reinforced Continue Temazepam 30 mg Q HS PRN (9) Anxiety: Code(s): F41.9 - Anxiety disorder, unspecified Category: Medical Plan: Continue Bupropion XL 150 mg Q AM, Fluoxetine 20 mg QD and Buspirone 5 mg BID Follow up with psychiatry as scheduled (10) Major depression, recurrent: Code(s): F33.9 - Major depressive disorder, recurrent, unspecified Category: Medical Qualifiers: Active/Remission status: currently active Major depression episode severity: unspecified Qualified Code(s): F33.9 - Major depressive disorder, recurrent, unspecified Plan: Continue Fluoxetine 20 mg QD, Bupropion XL 150 mg Q AM and Quetiapine 50 mg Q HS Follow up with psychiatry as scheduled (11) Overweight (BMI 25.0-29.9): Code(s): E66.3 - Overweight Category: Medical Plan: Reinforced diet/exercise as tolerated/lose weight Plan Follow up in 3 months Orders: Orders AMB Hemoglobin A1c Today Z13.9 - Encounter for screening, unspecified Lipid Panel 3 Months E78.00 - Pure hypercholesterolemia, unspecified Complete Blood Count Auto Diff 3 Months D64.9 - Anemia, unspecified Comprehensive [place]. Panel Fast 3 Months E78.00 - Pure hypercholesterolemia, unspecified Microalbumin, Random (w Creat) 3 Months E11.9 - Type 2 diabetes mellitus without complications TSH reflex Free T4 3 Months E78.00 - Pure hypercholesterolemia, unspecified Hemoglobin A1c 3 Months E11.9 - Type 2 diabetes mellitus without complications UA CC w/rflx Micro + Cult 3 Months R30.0 - Dysuria Vitamin B12 and Folate 3 Months E53.8 - Deficiency of other specified B group vitamins Vitamin D 25-OH Total 3 Months E55.9 - Vitamin D deficiency, unspecified Referrals General Surgery Referral D17.1 - Benign lipomatous neoplasm of skin and subcutaneous tissue of trunk Ophthalmology Referral E11.9 - Type 2 diabetes mellitus without complications Medications: Changed From atorvastatin Have not been seen since November 2022 and needs to schedule follow up appt SUSAN 40 mg PO DAILY 90 tabs 0RF To atorvastatin 40 mg PO DAILY 90 tabs 0RF 90 days From dulaglutide (Trulicity) 3 mg (0.5 mL) subcut QWEEK 2 mL 5RF To dulaglutide (Trulicity) 3 mg (0.5 mL) subcut QWEEK 2 mL 3RF 4 weeks From glipizide 10 mg PO DAILY 90 tabs 0RF To glipizide 10 mg PO DAILY 90 tabs 0RF 90 days From omeprazole 20 mg PO DAILY To omeprazole 20 mg PO DAILY 90 caps 1RF 90 days Refilled cholecalciferol (vitamin D3) 50 mcg PO DAILY 90 caps 3RF 90 days E55.9 - Vitamin D deficiency, unspecified insulin lispro (Humalog KwikPen (U-100) Insulin) 5 units (0.05 mL) subcut TID 15 mL 5RF insulin glargine (Lantus Solostar U-100 Insulin) 15 units (0.15 mL) subcut DAILY 15 mL 5RF metformin 1,000 mg PO BID 180 tabs 1RF 90 days
== END 2025-05-18 14:19 | disposition home or self-care (01) ==
LOC: HO.HMCH 13:30
PROVIDERS: PCP Internal Medicine; Visit Provider Internal Medicine
DX: E11.65 Type 2 diabetes mellitus with hyperglycemia (principal); E78.00 Pure hypercholesterolemia, unspecified; I10 Essential (primary) hypertension; K21.9 Gastro-esophageal reflux disease without esophagitis; M54.50 Low back pain, unspecified; M79.605 Pain in left leg; E55.9 Vitamin D deficiency, unspecified; D17.1 Benign lipomatous neoplasm of skin and subcutaneous tissue of trunk; G47.00 Insomnia, unspecified; F41.9 Anxiety disorder, unspecified; F33.9 Major depressive disorder, recurrent, unspecified; E66.3 Overweight; Z13.9 Encounter for screening, unspecified

== ENCOUNTER → 2025-05-18 13:29 | Outpatient (BNVA) | payer OTHER, SELFPAY | PROVIDERS: PCP Internal Medicine; Visit Provider Internal Medicine | DX: E11.65 Type 2 diabetes mellitus with hyperglycemia (principal); L72.9 Follicular cyst of the skin and subcutaneous tissue, unspecified; E78.00 Pure hypercholesterolemia, unspecified; I10 Essential (primary) hypertension; K21.9 Gastro-esophageal reflux disease without esophagitis; M54.50 Low back pain, unspecified; M79.605 Pain in left leg; E55.9 Vitamin D deficiency, unspecified; D17.1 Benign lipomatous neoplasm of skin and subcutaneous tissue of trunk; G47.00 Insomnia, unspecified; F41.9 Anxiety disorder, unspecified; F33.9 Major depressive disorder, recurrent, unspecified; D64.9 Anemia, unspecified; R30.0 Dysuria; E53.8 Deficiency of other specified B group vitamins; E66.3 Overweight; Z68.24 Body mass index [BMI] 24.0-24.9, adult; Z79.4 Long term (current) use of insulin; Z79.899 Other long term (current) drug therapy | CPT/HCPCS: 83036; 96127; 99212 ==

== ENCOUNTER 2025-05-26 16:06 | Emergency (ER) | payer OTHER, SELFPAY ==
[2025-05-26 16:23] VITALS: BP 114/54; PULSE 87; RESP 18; TEMP 36.7; O2SAT 98; BMI 24.6
--- NOTE | 2025-05-26 16:24 | ED.SKABFB ---
HPI - Skin/Abscess/Foreign Bdy General Chief complaint: General Medical Stated complaint: body rash Time Seen by Provider: 05/26/25 16:47 Source: patient and RN notes reviewed Mode of arrival: ambulatory Limitations: no limitations History of Present Illness ED Provider: Fatuma Borrero PA-C HPI narrative: This is a 64-year-old female, with a past medical history of spondylosis, GERD, diabetes, who presents emergency department with complaints of diffuse itchy body rash which started several days ago. She denies any difficulty swallowing or breathing. She states that over the last several months she has had waxing and waning symptoms. She denies taking any medications at home to treat her current symptoms. No changes in medication, soaps, lotions, or detergents. No new foods. Rash is itchy. No other complaints or concerns at this time. MD complaint: rash Onset (ago): day(s) Exacerbating factors: none Context: none Associated symptoms: denies other symptoms Treatments prior to arrival: none Related Data Home Medications ?Medication ?Instructions ?Recorded ?Confirmed fluoxetine 20 mg capsule 20 mg PO DAILY 06/15/20 05/18/25 temazepam 30 mg capsule (Restoril) 30 mg PO BEDTIME PRN 06/15/20 05/18/25 buspirone 5 mg tablet 5 mg PO BID 02/25/23 05/18/25 quetiapine 50 mg tablet 50 mg PO BEDTIME 05/18/25 05/18/25 Previous Rx's ?Medication ?Instructions ?Recorded methocarbamol 750 mg tablet 750 mg PO Q8H PRN for muscle spasm 12/12/22 #90 tabs famotidine 40 mg tablet 40 mg PO DAILY #90 tabs 01/24/23 acetaminophen 650 mg 1,300 mg (2 x 650 mg) PO Q12H PRN 01/30/23 tablet,extended release (Arthritis for pain 30 days #120 tabs Pain Relief (acetaminophen) ER) blood sugar diagnostic (FreeStyle #100 ea 04/15/23 Lite Strips) blood-glucose meter (FreeStyle #1 ea 04/15/23 Lite Meter kit) lancets 28 gauge (FreeStyle #100 ea 04/15/23 Lancets) gabapentin 300 mg capsule 300 mg PO TID 30 days #90 caps 05/13/23 bupropion HCl 150 mg 24 hr tablet, 150 mg PO QAM 30 days #30 tabs 08/22/23 extended release ketoconazole 2 % shampoo 1 appl topical 2XW #120 mL 11/18/23 blood-glucose sensor (FreeStyle #2 ea 12/17/23 Jessica 3 Sensor device) blood-glucose,multifocal button generator,cont #1 ea 12/17/23 (FreeStyle Jessica 3 [place]) lisinopril 2.5 mg tablet 2.5 mg PO DAILY #90 tabs 12/17/23 pen needle, diabetic 32 gauge x #100 ea 12/17/23/ (Comfort EZ Pen [place]) atorvastatin 40 mg tablet 40 mg PO DAILY 90 days #90 tabs 05/18/25 cholecalciferol (vitamin D3) 50 50 mcg PO DAILY 90 days #90 caps 05/18/25 mcg (2,000 unit) capsule dulaglutide 3 mg/0.5 mL 3 mg (0.5 mL) subcut QWEEK 4 weeks 05/18/25 subcutaneous pen injector #2 [facility] glipizide 10 mg tablet 10 mg PO DAILY 90 days #90 tabs 05/18/25 insulin glargine 100 unit/mL (3 15 unit (0.15 mL) subcut DAILY #15 05/18/25 mL) subcutaneous pen (Lantus mL Solostar U-100 Insulin) insulin lispro 100 unit/mL 5 unit (0.05 mL) subcut TID #15 mL 05/18/25 subcutaneous pen (Humalog KwikPen (U-100) Insulin) metformin 1,000 mg tablet 1,000 mg PO BID 90 days #180 tabs 05/18/25 omeprazole 20 mg capsule,delayed 20 mg PO DAILY 90 days #90 caps 05/18/25 release cetirizine 10 mg tablet (All Day 10 mg PO DAILY #30 tabs 05/26/25 Allergy (cetirizine)) diphenhydramine HCl 25 mg tablet 25 - 50 mg (1 - 2 x 25 mg) PO TID 05/26/25 (Benadryl Allergy) PRN itching #20 tabs prednisone 20 mg tablet 40 mg (2 x 20 mg) PO DAILY 5 days 05/26/25 #10 tabs Allergies Allergy/AdvReac Type Severity Reaction Status Date / Time iodine (IODINE) Allergy Unknown ANAPHYLAXIS Verified 05/26/25 16:29 IVP DYE Allergy Severe anaphylaxis Uncoded 05/18/25 14:08 Review of Systems Review of Systems: Constitutional : No Fever, No Chills ENT/Mouth : No sore throat, No Rhinorrhea Eyes: No Eye Pain, No Swelling, No Redness Cardiovascular : No Chest Pain, No SOB Respiratory : No Cough, No Sputum Gastrointestinal : No Nausea, No Vomiting, No Diarrhea, No abdominal Pain Genitourinary : No Dysuria, No Hematuria Musculoskeletal : No joint pain, No Myalgias, No Joint Swelling Skin : No Skin Lesions, positive skin rash Neuro : No Weakness, No Numbness, No Headache All other systems reviewed and are negative Yes all other systems are reviewed and are negative Constitutional: Constitutional: Reports as per [facility] Past Medical History Medical History (Updated 05/26/25 @ 16:27 by AGATHA Schmitt) Anxiety Acute diverticulitis Smoker Overweight (BMI 25.0-29.9) Major depression, recurrent Insomnia Vitamin D deficiency GERD (gastroesophageal reflux disease) Benign essential hypertension Pure hypercholesterolemia Type 2 diabetes mellitus with hyperglycemia Surgical History Hx of foot surgery Hx of colonoscopy History of carpal tunnel release of both wrists Family History Family History Father Diabetes Hypertension Mother Diabetes Hypertension Social History Social History Housing: Apartment Alcohol intake: never Patient Tobacco Use Status: Current everyday Tobacco user Tobacco use type: Cigarette Cigarettes Per Day: 3 e-Cigarette/Vaping Use: Never Used Second Hand Smoke Exposure: Yes service: No Current occupational status: disabled Cognitive needs: No Hearing needs: No Vision needs: Yes Physical Exam Exam: Exam: General: Awake, alert, and oriented X3. No acute distress. HEENT: Normal inspection, oropharynx is widely patent. CVS: Normal heart rate and rhythm. Pulses normal. Respiratory: No respiratory distress, lungs clear to auscultation bilaterally. Skin: Diffuse maculopapular rash noted throughout upper arms, back, with excoriations noted. Some scattered hives noted to the posterior left shoulder. Extremities: Normal to inspection Neuro: Oriented X 3. No motor deficit. No sensory deficit. Vital Signs: Vital Signs: Last Vital Signs Temp 98.1 F 05/26/25 16:47 Pulse 87 05/26/25 16:47 Resp 18 05/26/25 16:47 BP 118/68 05/26/25 16:47 Pulse Ox 98 05/26/25 16:47 O2 Del Method Room Air 05/26/25 16:47 BMI result Body Mass Index 24.6 Medical Decision Making Medical Decision Making MDM Narrative: This is a 64-year-old female who presents emergency department with complaints of itchy rash which started several days ago. States that she gets this rash intermittently over the last several months, she is unsure what this is caused from. No new soaps, lotions, detergents or medications. No new foods. Lungs are clear to auscultation bilaterally. Airway is widely patent. No fevers or chills. Will treat with course of prednisone, Benadryl, and cetirizine. Stressed the importance of closely monitoring her blood glucose level as prednisone can spike her sugars. She understands and agrees with plan. Also advised to follow-up with her PCP as she may want to follow-up with an balance truer. She understands agrees with plan. Patient stable for discharge. Differential Diagnosis Differential Diagnoses: The differential diagnosis associated with the presentation includes Contact dermatitis, cellulitis, anaphylaxis-unlikely, atopic dermatitis Discharge Plan Discharge Clinical Impression: Allergic dermatitis Patient Disposition: Home, Self-Care Instructions: General Allergic Reaction (ED), Dermatitis (ED) Additional Instructions: You were seen in the emergency department due to a rash. It is unclear what is causing you to have this rash however write down in a journal when you developed this rash. You may need to see an balance truer, call to make an appointment with your primary care to have this set up. You may also take Benadryl for your symptoms/itchiness, this can cause drowsiness, do not drink alcohol or drive while taking this medication. If any new or worsening symptoms occur including but not limited to severe chest pain, shortness of breath, please seek emergent care. Prescriptions: New prednisone 20 mg tablet 40 mg PO DAILY 5 Days Qty: 10 0RF cetirizine [All Day Allergy (cetirizine)] 10 mg tablet 10 mg PO DAILY Qty: 30 0RF diphenhydramine HCl [Benadryl Allergy] 25 mg tablet 25 - 50 mg PO TID PRN (Reason: itching) Qty: 20 0RF No Action methocarbamol 750 mg tablet 750 mg PO Q8H PRN (Reason: for muscle spasm) Qty: 90 0RF famotidine 40 mg tablet 40 mg PO DAILY Qty: 90 3RF acetaminophen [Arthritis Pain Relief (acetam)] 650 mg tablet extended release 1,300 mg PO Q12H PRN (Reason: for pain) 30 Days Qty: 120 6RF (DME) blood-glucose meter [FreeStyle Lite Meter] Kit See Rx Instructions .Route Qty: 1 0RF Rx Instructions: As directed test 4 times a day (DME) FreeStyle Lite Strips Strip See Rx Instructions .Route Qty: 100 5RF Rx Instructions: As directed test 4 times a day (DME) lancets [FreeStyle Lancets] 28 gauge misc See Rx Instructions .Route Qty: 100 5RF Rx Instructions: As directed test 4 times a day gabapentin 300 mg capsule 300 mg PO TID 30 Days Qty: 90 5RF bupropion HCl 150 mg tablet extended release 24 hr 150 mg PO QAM 30 Days Qty: 30 1RF Rx Instructions: Have not been seen since November 2022 and needs to schedule follow up appt SUSAN lisinopril 2.5 mg tablet 2.5 mg PO DAILY Qty: 90 0RF ketoconazole 2 % shampoo 1 appl topical 2XW Qty: 120 0RF Rx Instructions: use as instructed temazepam [Restoril] 30 mg capsule 30 mg PO BEDTIME PRN fluoxetine 20 mg capsule 20 mg PO DAILY buspirone 5 mg tablet 5 mg PO BID quetiapine 50 mg tablet 50 mg PO BEDTIME (DME) pen needle, diabetic [Comfort EZ Pen [place]ia] 32 gauge x 5/16 needle See Rx Instructions .Route Qty: 100 4RF Rx Instructions: As directed injects 4X/day (DME) FreeStyle Jessica 3 Sensor Device See Rx Instructions .Route Qty: 2 4RF Rx Instructions: As directed change every 14 days (DME) FreeStyle Jessica 3 [place] Misc See Rx Instructions .Route Qty: 1 0RF Rx Instructions: As directed atorvastatin 40 mg tablet 40 mg PO DAILY 90 Days Qty: 90 0RF cholecalciferol (vitamin D3) 50 mcg (2,000 unit) capsule 50 mcg PO DAILY 90 Days Qty: 90 3RF Trulicity 3 mg/0.5 mL pen injector 3 mg subcut QWEEK 28 Days Qty: 2 3RF glipizide 10 mg tablet 10 mg PO DAILY 90 Days Qty: 90 0RF insulin glargine [Lantus Solostar U-100 Insulin] 100 unit/mL (3 mL) insulin pen 15 unit subcut DAILY Qty: 15 5RF insulin lispro [Humalog KwikPen Insulin] 100 unit/mL insulin pen 5 unit subcut TID Qty: 15 5RF metformin 1,000 mg tablet 1,000 mg PO BID 90 Days Qty: 180 1RF omeprazole 20 mg capsule,delayed release(DR/EC) 20 mg PO DAILY 90 Days Qty: 90 1RF Interventions: ED Discharge Assessment Last Done: 05/26/25 16:47 Discharge Date/Time: 05/26/25 17:13 Print Language: Khmer
[2025-05-26 16:47] VITALS: BP 118/68; PULSE 87; RESP 18; TEMP 36.7; O2SAT 98
== END 2025-05-26 17:13 | disposition home or self-care (01) ==
PROVIDERS: Emergency Provider Emergency Medicine; PCP Internal Medicine
DX: L23.9 Allergic contact dermatitis, unspecified cause (principal); E11.9 Type 2 diabetes mellitus without complications; Z79.899 Other long term (current) drug therapy
CPT/HCPCS: 99282; 99283

== ENCOUNTER 2025-05-27 09:41 | Outpatient (AMB) | payer OTHER, SELFPAY ==
--- NOTE | 2025-05-27 09:51 | A.OFFPC_ITS ---
Vital Signs 05/27/25 09:52 Height 4 ft 11 in Weight 122 lb 2 oz BMI 24.7 BP 100/60 Blood Pressure Location Lt brachial Position Sitting Pulse 75 Pulse Source Pulse Oximeter Temp 97.3 F Temp Source Temporal Artery Scan Pulse Oximetry (%) 95 Oxygen Delivery Method Room Air Intake Visit Reasons: [facility] [place] Intake Note: Patient is here to follow-up after a visit the emergency department at [facility] on 05/26/25 [employer] Harvest Machine Operator Required: Yes [employer] Harvest Machine Operator Language: Belt Measurer Name: Shweta ([id number]) Information Interpreted: non-clinical & clinical Cycle Liaison: Not Required per policy Accompanied by: Self / Same As Patient Allergies iodine (IODINE) Allergy (Unknown, Verified 05/27/25 09:52) ANAPHYLAXIS IVP DYE Allergy (Severe, Uncoded 05/27/25 09:52) anaphylaxis Tobacco use date assessed: 05/27/25 Fall risk assessment: No Falls in past year Last assessed Fall Risk: 05/27/25 Dental Screening Dental Screen Date: 05/18/25 HPI HPI Comments History of Present Illness Details 64 y/o Female patient who presents to [facility] today for EDF. Patient was admitted at [facility] on 05/26 for an evaluation and treatment of Allergic Dermatitis. Patient was prescribed Benadrly, Cetirizine and Prednisone. Reports Rash has improved and no more itching. Patient asking for Referral to an Oil Agent. [facility] Medical History (Updated 05/27/25 @ 00:01 by Kayla Gonzáles) Anxiety Acute diverticulitis Smoker Overweight (BMI 25.0-29.9) Major depression, recurrent Insomnia Vitamin D deficiency GERD (gastroesophageal reflux disease) Benign essential hypertension Pure hypercholesterolemia Type 2 diabetes mellitus with hyperglycemia Surgical History Hx of foot surgery Hx of colonoscopy History of carpal tunnel release of both wrists Family History Father Diabetes Hypertension Mother Diabetes Hypertension Social History Housing: Apartment Alcohol intake: never Patient Tobacco Use Status: Current everyday Tobacco user Tobacco use type: Cigarette Cigarettes Per Day: 3 e-Cigarette/Vaping Use: Never Used Second Hand Smoke Exposure: Yes service: No Current occupational status: disabled Cognitive needs: No Hearing needs: No Vision needs: Yes Questionnaire Thrive Questionnaire Date Thrive assessed: 02/25/25 I am a: Patient What is your living situation today?: I do not have a steady places to live I am temporarily staying with others Within the past 12 months, did the food you bought not last and you didn't have the money to get more?: Often true Within the past 12 months, did you worry whether your food would run out before you got money to buy more?: Never true Do you have trouble paying for medicines?: No Do you have trouble getting transportation to medical appointments?: Yes Do you have trouble paying your heating and electricity bill?: No Do you have trouble taking care of your child, family member or friend?: No Do you have trouble with day-to-day activities such as bathing, preparing meals, shopping, managing finances, etc.?: Yes Are you currently unemployed and looking for a job?: No Are you interested in more education?: Yes Please select the resources that you would like help with: None Currently or been in a relationship where the following occur: No concerns reported THRIVE Score: 3 CALEB-7 AMB Questionnaire CALEB-7 Date CALEB - 7 assessed: 05/18/25 Source: Developed by Drs. Agustin Ramos, Claribel Cortez, Paul Mello and colleagues, with an educational alyssa from [employer]. Review of Systems Const All systems reviewed & are unremarkable except as noted in HPI and below Physical exam (Primary Care) Vital Signs: Last Vital Signs Temp 97.3 F 05/27/25 09:52 Pulse 75 05/27/25 09:52 BP 100/60 05/27/25 09:52 Pulse Ox 95 05/27/25 09:52 Oxygen Delivery Method Room Air 05/27/25 09:52 BMI result Body Mass Index 24.7 Tobacco/Smoking Status: Tobacco use Status Tobacco use date assessed 05/27/25 05/27/25 09:58 Patient Tobacco Use Status Current everyday Tobacco 05/27/25 09:51 Tobacco use type Cigarette 05/27/25 09:51 e-Cigarette/Vaping Use Never Used 05/27/25 09:51 Thrive Assessment: Date of Thrive Assessment Date Thrive assessed 02/25/25 05/27/25 09:51 Currently or been in a relationship where the following occur: No concerns reported Const General: no acute distress Nutritional Appearance: well nourished Orientation/consciousness: patient oriented x3 Resp Effort & Inspection: normal respiratory effort Auscultation: clear to auscultation bilaterally Cardio Heart sounds: S1 normal heart sound present and S2 normal heart sound present Skin Other: Diffuse maculopapular rash noted throughout upper arms, back, with excoriations noted. Neuro General: patient oriented x3, gait normal and moves all extremities Coding Level of Care Code Est Pt Level 4 (93282) Diagnoses Allergic dermatitis L23.9 Time Spent (min) 20 Assessment & Plan Assessment & Plan (1) Allergic dermatitis: Code(s): L23.9 - Allergic contact dermatitis, unspecified cause Category: Medical Plan: Continue on prescribed medications as instructed. Referral to Oil Agent placed. Orders: Referrals Allergy & Immunology Referral L23.9 - Allergic contact dermatitis, unspecified cause
[2025-05-27 09:52] VITALS: BP 100/60; PULSE 75; TEMP 36.3; O2SAT 95; BMI 24.7
== END 2025-05-27 10:24 | disposition home or self-care (01) ==
LOC: HO.HMCH 09:42
PROVIDERS: PCP Internal Medicine; Visit Provider Nurse Practitioner Family
DX: L23.9 Allergic contact dermatitis, unspecified cause (principal)

== ENCOUNTER → 2025-05-27 09:41 | Outpatient (BNVA) | payer OTHER, SELFPAY | PROVIDERS: PCP Internal Medicine; Visit Provider Nurse Practitioner Family | DX: K21.9 Gastro-esophageal reflux disease without esophagitis (principal); L23.9 Allergic contact dermatitis, unspecified cause | CPT/HCPCS: 99212 ==